=== PATIENT | male | born 1950 | race Caucasian/White ===

== ENCOUNTER 2019-12-04 17:34 | Emergency (ER) | payer OTHER ==
--- OUTSIDE RECORDS SUMMARY | 2019-12-04 17:35 | XMS REPORT ---
:1950 Author Organization [facility] t Address [address] [place] [address] Dr. Kaplan [address] [place] [id number] Care Team Providers Name Role Phone Unavailable Unavailable Unavailable Problems This patient has no known problems. Allergies, Adverse Reactions, Alerts This patient has no known allergies or adverse reactions. Medications This patient has no known medications.
--- OUTSIDE RECORDS SUMMARY | 2019-12-04 17:36 | XMS REPORT | Summary of Care ---
:1950 Author Organization [facility] - Health Address [address] [place] [address] Care Team Providers Name Role Phone Amira Nael Camarena Primary Care Provider Reason for Visit Auth/Cert Status Reason Specialty Diagnoses / Procedures Referred By Migue lopezact Referred To Contact Surgery Diagnoses Dysphagia, unspecified R13.10 (ICD-10-CM) - Dysphagia, unspecified Adc Pre/Pa cu/Post Procedures [place] EGD TRANSORAL BIOPSY SINGLE/MULTIPLE ESOPHAGOGASTRODUODENOSCOPY [address]131 - [place] EGD TRANSORAL BIOPSY SINGLE/MULTIPLE [address] [place] [address] [place] [address] Phone: Fax: Encounter Details Date Type Department Care Team Description 09/21/2019 [facility] Migue [address] [facility] [address] [facility] [place] [address] [id number] [place] [phone] Allergies No Known Allergiesdocumented as of this encounter (statuses as of 09/21/2019) Medications Medication Sig Dispensed Refills Start Date End Date Status potassium citrate Take 1,080 mg 3 08/10/2015 Active (UROCIT-K) 10 mEq (1,080 by mouth 2 mg) SR tablet (two) times daily. hydrochlorothiazide 0 10/11/2015 Active (ESIDRIX) 12.5 mg capsule pravastatin (PRAVACHOL) 10 Take 10 mg by 0 Active mg tablet mouth at bedtime. Omeprazole, Bulk, 100 % 0 Active Powd fexofenadine (RAJ Take 180 mg 0 Active ALLERGY) 180 mg tablet by mouth daily. MULTIVITAMINS WITH FLUORIDE Take 1 tablet 0 Active (MULTI YWLV-EUSN-PLISEDMC by mouth ORAL) daily. VITAMIN E,DL-ALPHA 0 A ctive TOCOPHEROL, (VITAMIN E, BULK, MISC) ASCORBIC ACID/VITAMIN E Take by 0 Active (VITAMIN C & E COMBINATION mouth. ORAL) NAPROXEN SODIUM (ALEVE Take by 0 Active ORAL) mouth. diclofenac 75 mg EC tablet Take 1 tablet 60 tablet 1 8 Active by mouth 2 (two) times daily with meals. diclofenac 75 mg EC tablet Take 1 tablet 60 tablet 1 8 Active by mouth 2 (two) times daily with meals. diclofenac 75 mg EC tablet Take 1 tablet 90 tablet 0 8 Active by mouth 2 (two) times daily with meals. ascorbic acid, vitamin C, Take 500 mg 0 Active (VITAMIN C) 500 mg tablet by mouth daily. vitamin e 400 unit capsule Take 400 0 Active Units by mouth daily. omeprazole 40 mg capsule Take 40 mg by 0 Active mouth daily. documented as of this encounter (statuses as of 09/21/2019) Active Problems Problem Noted Date Left ankle pain 10/17/2015 documented as of this encounter (statuses as of 09/21/2019) Social History Tobacco Use Types Packs/Day Years Used Date Never Smoker Smokeless Tobacco: Never Used Alcohol Use Drinks/Week oz/Week Comments No 0 Standard drinks or equivalent 0.0 Sex Assigned at Date Recorded Not on file Job Start Date Occupation Industry Not on file Not on file Not on file Travel History Travel Start Travel End No recent travel history available. documented as of this encounter Last Filed Vital Signs Vital Sign Reading Time Taken Comments Blood Pressure 124/78 09/21/2019 9:03 AM BELT LACER Pulse 58 09/21/2019 9:02 AM BELT LACER Temperature 36.7 C (98.1 F) 09/21/2019 9:02 AM BELT LACER Respiratory Rate 18 09/21/2019 9:02 AM BELT LACER Oxygen Saturation 95% 09/21/2019 9:02 AM BELT LACER Inhaled Oxygen Concentration - - Weight 89.8 kg (198 lb) 09/19/2019 3:00 PM BELT LACER Height 180.3 cm (5' 11") 09/19/2019 3:00 PM BELT LACER Body Mass Index 27.62 09/19/2019 3:00 PM BELT LACER documented in this encounter Discharge Instructions InstructionsOsizugbo, Tammi C, RN - 09/21/2019EGD DISCHARGE INSTRUCTIONS 1. Do not eat or drink until the sensation in your throat returns. Test your ability to drink withwater before eating solids. Lozenges are helpful for throat tenderness. 2. DO NOT DRIVE or operate machinery for the rest of the day. 3. Mild abdominal discomfort may result from procedure, but this should disappear within several hours. Notify your physician/nurse if you have persistent pain for more than 6 hours. Tenderness or abdominal distention. 4. Belching or passing gas per rectum frequently occurs during the first few hours after the examination. Walking will often help relieve distention or gas pains. 5. Notify your physician/nurse if your heart rate becomes unusually rapid, if you experience shortness of breath, dizziness fever greater than 101.0F.; or vomiting blood or experience chest pains or have any concerns at all. 6. Tenderness may occur in vein where medication was given. Notify your physician /nurse should fever, swelling, redness of the arm/hand, or pain in the armpit occurs. 7. Many patients feel quite tired following this procedure. You should rest and recuperate for several hours. 8. Continue to take all medications as prescribed until your follow up appointment. 9. Ask nurse for assistance in ambulating. 10. If you cannot reach your physician for problems go to the nearest emergency room. documented in this encounter Plan of Treatment Name Type Priority Associated Diagnoses Order S chedule EKG-12 LEAD ROUTINE HEART STATION Routine ONCE fo r 1 Occurrences sta rting 09/21/2019 unti l 09/21/2019 SURGICAL PATHOLOGY LAB Routine ONCE for 1 EXAM Occurrences sta rting 09/21/2019 Health Maintenance Due Date Last Done Comments HEPATITIS C (HCV) SCREEN 1950 DTaP,Tdap,and Td Vaccines (1 - Tdap) 1963 COLONOSCOPY 2002 Zoster Recombinant Vaccine (SHINGRIX) (1 of 2) 2002 Medicare Wellness Visit 2017 PNEUMOCOCCAL VACCINES 65+ (1 of 2 - PCV13) 2017 INFLUENZA VACCINE (#1) 2019 documented as of this encounter Procedures Procedure Name Priority Date/Time Associated Diagnosis Comme nts EGD (ENDO) Routine 09/21/2019 8:18 AM BELT LACER EKG-12 LEAD Routine 09/21/2019 7:36 AM BELT LACER documented in this encounter Results Not on filedocumented in this encounter Visit Diagnoses Diagnosis Esophageal dysphagia - Primary Dysphagia, pharyngoesophageal phase documented in this encounter Administered Medications Medication Order MAR Action Action Date Dose Rate Site simethicone (GAS RELIEF Given 09/21/2019 8:35 AM BELT LACER 0.6 mL (SIMETHICONE)) 40 mg/0.6 mL drops PRN, Starting Thu09/21/19 at 0835, Until Discontinued, Routine, Intra-op water for irrigation irrigation solution Given 09/21/2019 8:35 AM BELT LACER 1,000 mL PRN, Starting Thu09/21/19 at 0835, Until Discontinued, Routine, Intra-op Medication Order MAR Action Action Date Dose Rate Site lactated ringers IV infusion New Bag 09/21/2019 7:31 AM BELT LACER 1,000 mL 20 mL/hr 1,000 mL at 20 mL/hr, 1,000 mL, IV Infusion, ONCE, 1 dose, Thu09/21/19 at 0730, Routine, DSU Pre-op documented in this encounter Insurance Payer Benefit Plan / Subscriber ID Effective Phone Address T ype Group Dates MEDICARE MEDICARE PART xxxxxxxxxxx 2017-Pres [phone] Medicare A & B ent [phone] [id number] [place] [address] COMMERCIAL COMMERCIAL [id number] 2017-Pres HMO /PPO/POS NON-CONTRACT NON-CONTRACT ent GENERIC GENERIC documented as of this encounter
--- OUTSIDE RECORDS SUMMARY | 2019-12-04 17:36 | XMS REPORT | Summary of Care ---
:1950 Author Organization [facility] - Health Address [address] [place] [address] Care Team Providers Name Role Phone Amira Nael Camarena Primary Care Provider Reason for Visit Auth/Cert Status Reason Specialty Diagnoses / Procedures Referred By Migue lopezact Referred To Contact Surgery Diagnoses Dysphagia, unspecified R13.10 (ICD-10-CM) - Dysphagia, unspecified Adc Pre/Pa cu/Post Procedures [place] EGD TRANSORAL BIOPSY SINGLE/MULTIPLE ESOPHAGOGASTRODUODENOSCOPY [address] - [place] EGD TRANSORAL BIOPSY SINGLE/MULTIPLE [address] [place], [place] [address] Phone: Fax: Encounter Details Date Type Department Care Team Description 09/21/2019 Anesthesia [facility] Marielle Bustillos CRNA [address] [place] [address] [id number] [facility] Essence Masterson CRNA [address] [place] [address] [phone] [place] [address] [place], [place] [phone] Allergies No Known Allergiesdocumented as of this encounter (statuses as of 09/23/2019) Medications Medication Sig Dispensed Refills Start Date [...] FLUORIDE Take 1 tablet 0 Active (MULTI [id number] by mouth ORAL) daily. VITAMIN E,DL-ALPHA 0 [...] as of this encounter (statuses as of 09/23/2019) Active Problems Problem Noted Date Left ankle pain 10/17/2015 documented as of this encounter (statuses as of 09/23/2019) Social History Tobacco Use Types Packs/Day Years [...] of this encounter Last Filed Vital Signs Not on filedocumented in this encounter Plan of Treatment Health Maintenance Due Date Last Done Comments HEPATITIS C (HCV) SCREEN 1950 DTaP,Tdap,and Td Vaccines (1 - Tdap) 1963 COLONOSCOPY 2002 Zoster Recombinant Vaccine (SHINGRIX) (1 of 2) 2002 Medicare Wellness Visit 2017 PNEUMOCOCCAL VACCINES 65+ (1 of 2 - PCV13) 2017 INFLUENZA VACCINE (#1) 2019 documented as of this encounter Results Not on filedocumented in this encounter Administered Medications Medication Order MAR Action Action Date Dose Rate Site propofol IV infusion Given 09/21/2019 8:30 AM PRICING DIRECTOR 180 mg Intravenous, ONCE INTRA PROCEDURE, Starting Thu09/21/19 at 0859, Until Thu09/23/19 at 0827, Routine, Intra-op documented in this encounter Insurance Payer Benefit Plan / Subscriber ID Effective Phone Address T ype Group Dates MEDICARE MEDICARE PART xxxxxxxxxxx 2017-Pres [phone] Medicare A & B ent [phone] [id number] [place] [phone] COMMERCIAL COMMERCIAL [id number] 2017-Pres HMO /PPO/POS NON-CONTRACT NON-CONTRACT ent GENERIC GENERIC documented as of this encounter
--- OUTSIDE RECORDS SUMMARY | 2019-12-04 17:36 | XMS REPORT | Summary of Care ---
:1950 Author Organization [facility] - Health Address [address] [place] [address] Care Team Providers Name Role Phone Amira Nael Camarena Primary Care Provider Reason for Visit Auth/Cert Status Reason Specialty Diagnoses / Procedures Referred By Migue lopezact Referred To Contact Surgery Diagnoses Dysphagia, unspecified R13.10 (ICD-10-CM) - Dysphagia, unspecified Adc Pre/Pa cu/Post Procedures [place] EGD TRANSORAL BIOPSY SINGLE/MULTIPLE ESOPHAGOGASTRODUODENOSCOPY [address]30 - [place] EGD TRANSORAL BIOPSY SINGLE/MULTIPLE [address] [place], [place] [address] Phone: Fax: Encounter Details Date Type Department Care Team Description 09/21/2019 Anesthesia [facility] Marielle Bustillos CRNA [address] [place] [id number] [facility] Essence Masterson CRNA [address] [place] [address] [phone] [place] [address] [place], [place] [phone] Allergies No Known Allergiesdocumented as of this [...] FLUORIDE Take 1 tablet 0 Active (MULTI JNBW-HQNA-QWXPRAKE by mouth ORAL) daily. VITAMIN E,DL-ALPHA 0 [...] propofol IV infusion Given 09/21/2019 8:30 AM BEHAVIORAL PEDIATRICIAN 180 mg Intravenous, ONCE INTRA PROCEDURE, Starting Thu09/21/19 at 0859, Until Thu09/23/19 at 0827, Routine, Intra-op documented in this encounter Insurance Payer Benefit Plan / Subscriber ID Effective Phone Address T ype Group Dates MEDICARE MEDICARE PART xxxxxxxxxxx 2017-Pres [phone] Medicare A & B ent [phone] [id number] [place] [id number] COMMERCIAL COMMERCIAL [id number] 2017-Pres HMO /PPO/POS NON-CONTRACT NON-CONTRACT ent GENERIC GENERIC documented as of this encounter
--- NOTE | 2019-12-04 18:38 | RAD REPORT ---
EXAM DESCRIPTION: RAD - Shoulder Left 2 View - 12/04/2019 6:28 pm CLINICAL HISTORY: PAIN Fall, pain COMPARISON: No comparisons FINDINGS: No acute fracture or dislocation is seen.
--- NOTE | 2019-12-04 18:56 | RAD REPORT ---
EXAM DESCRIPTION: CT - Head Brain Wo Cont - 12/04/2019 6:49 pm CLINICAL HISTORY: TRAUMA Headache, drowsiness, head injury COMPARISON: No comparisons TECHNIQUE: All CT scans are performed using dose optimization technique as appropriate and may inclu de automated exposure control or mA/KV adjustment according to patient size. FINDINGS: No intracranial hemorrhage, hydrocephalus or extra-axial fluid collection.No areas of brai n edema or evidence of midline shift. The paranasal sinuses and mastoids are clear. The calvarium is intact. IMPRESSION: No acute intracranial abnormality.
--- NOTE | 2019-12-04 19:04 | EDPHYS ---
Physician Documentation [facility] Name: Humberto Brar Age: 69 yrs Sex: Male : 1950 Arrival Date: 12/04/2019 Time: 17:35 Bed 14 Private MD: Theresa Collier C ED Physician Carlton Magana HPI: 12/03 18:12 This 69 yrs old Male presents to ER via Ambulatory with complaints of kb Shoulder Pain, Passed Out Prior To Arrival. 18:13 The patient has experienced syncope, collapsed. Onset: The symptoms/episode kb began/occurred today. Duration: This was a single episode. Context: the episode(s) was witnessed, by a friend, occurred outdoors, occurred while the patient was standing, Just prior to the episode the patient experienced lightheadedness. Associated injury: Left upper extremity: anterior aspect of left shoulder, pain. Associated signs and symptoms: The patient has no apparent associated signs or symptoms. Current symptoms: Currently, the patient is not experiencing any symptoms, the patient feels back to baseline, no decreased level of consciousness, no confusion, no dysphasia, no headache, no paralysis, no visual changes. The patient has not experienced similar symptoms in the past. The patient has not recently seen a physician. Pt reports he gave blood at approx 1130, went home and ate a sandwich and some ice cream then went on a 2 hour bike ride. States he stopped to talk to a friend at the end of the ride and got lightheaded and passed out. Reports he got checked out by EMS and refused transport at the time. Went home and took a shower. States it was painful to raise his left shoulder in certain positions to wash his hair. Came in due to shoulder pain.. Historical: - Allergies: 17:49 No Known Allergies; ca1 - Home Meds: 17:49 Hydrochlorothiazide Oral [Active]; Omeprazole Oral [Active]; potassium citrate ca1 monohydrate (bulk) miscellaneous [Active]; pravastatin oral oral [Active]; - PMHx: 17:49 annuerysm; Hypertension; ca1 - PSHx: 17:49 kidney stone removal; Tonsillectomy; Adenoids; ca1 - Immunization history:: Adult Immunizations up to date, Pneumococcal vaccine is up to date, Flu vaccine is up to date. - Social history:: Smoking status: Patient denies any tobacco usage or history of. ROS: 18:12 Constitutional: Negative for fever, chills, and weight loss, Neck: Negative for injury, kb pain, and swelling, Cardiovascular: Negative for chest pain, palpitations, and edema, Respiratory: Negative for shortness of breath, cough, wheezing, and pleuritic chest pain, Abdomen/GI: Negative for abdominal pain, nausea, vomiting, diarrhea, and constipation, Back: Negative for injury and pain, Skin: Negative for injury, rash, and discoloration. 18:12 MS/extremity: Positive for pain, of the anterior aspect of left shoulder. 18:12 Neuro: Positive for syncope. Exam: 18:11 Constitutional: This is a well developed, well nourished patient who is awake, alert, kb and in no acute distress. Head/Face: Normocephalic, atraumatic. ENT: Nares patent. No nasal discharge, no septal abnormalities noted. Tympanic membranes are normal and external auditory canals are clear. Oropharynx with no redness, swelling, or masses, exudates, or evidence of obstruction, uvula midline. Mucous membranes moist. Neck: Trachea midline, no thyromegaly or masses palpated, and no cervical lymphadenopathy. Supple, full range of motion without nuchal rigidity, or vertebral point tenderness. No Meningismus. Chest/axilla: Normal chest wall appearance and motion. Nontender with no deformity. No lesions are appreciated. Cardiovascular: Regular rate and rhythm with a normal S1 and S2. No gallops, murmurs, or rubs. Normal PMI, no JVD. No pulse deficits. Respiratory: Lungs have equal breath sounds bilaterally, clear to auscultation and percussion. No rales, rhonchi or wheezes noted. No increased work of breathing, no retractions or nasal flaring. Abdomen/GI: Soft, non-tender, with normal bowel sounds. No distension or tympany. No guarding or rebound. No evidence of tenderness throughout. Skin: Warm, dry with normal turgor. Normal color with no rashes, no lesions, and no evidence of cellulitis. Neuro: Awake and alert, GCS 15, oriented to person, place, time, and situation. Cranial nerves II-XII grossly intact. Motor strength 5/5 in all extremities. Sensory grossly intact. Cerebellar exam normal. Normal gait. 18:11 Musculoskeletal/extremity: Extremities: grossly normal except: noted in the anterior aspect of left shoulder: pain, ROM: full active range of motion, limited active range of motion due to pain, in the anterior aspect of left shoulder, Circulation is intact in all extremities. Sensation intact. 18:46 ECG was reviewed by the Attending Physician. kb Vital Signs: 17:41 BP 117 / 70; Pulse 75; Resp 18 S; Temp 97.3(TE); Pulse Ox 96% on R/A; Weight 81.65 kg ca1 (R); Height 5 ft. 11 in. (180.34 cm); Pain 0/10; 19:02 BP 115 / 72 Supine; Pulse 62; lt1 19:02 BP 114 / 72 Sitting; Pulse 71; lt1 19:02 BP 115 / 70 Standing; Pulse 79; lt1 17:41 Body Mass Index 25.10 (81.65 kg, 180.34 cm) ca1 MDM: 17:49 Patient medically screened. kb 18:11 Data reviewed: vital signs, nurses notes. Data interpreted: Pulse oximetry: on room air kb is 96 %. Interpretation: normal. 19:03 Counseling: I had a detailed discussion with the patient and/or guardian regarding: the kb historical points, exam findings, and any diagnostic results supporting the discharge/admit diagnosis, radiology results, the need for outpatient follow up, a family practitioner, to return to the emergency department if symptoms worsen or persist or if there are any questions or concerns that arise at home. 05 17:59 Order name: Shoulder Left (2 View) XRAY; Complete Time: 18:43 kb 12/03 17:59 Order name: CT Head Brain wo Cont; Complete Time: 19:03 kb 12/03 17:50 Order name: Orthostatics; Complete Time: 19:04 kb 12/03 17:59 Order name: EKG; Complete Time: 17:59 kb 12/03 17:59 Order name: EKG - Nurse/Tech; Complete Time: 18:47 kb EC:46 Rate is 67 beats/min. Rhythm is regular. QRS [place] is Normal. ME interval is normal at kb 160 msec. QRS interval is normal at 88 msec. QT interval is normal at 406 msec. Administered Medications: No medications were administered Disposition: 12/04 07:21 Co-signature as Attending Physician, Carlton Magana MD. rn Disposition: 12/04/19 19:04 Discharged to Home. Impression: Syncope and collapse, Pain in left shoulder. - Condition is Stable. - Discharge Instructions: Shoulder Pain, [id number], Syncope, [id number]. - Prescriptions for Cyclobenzaprine 10 mg Oral Tablet - take 1 tablet by ORAL route every 8 hours As needed; 21 tablet. - Medication Reconciliation Form, Thank You Letter, Antibiotic Education, Prescription Opioid Use form. - Follow up: Emergency Department; When: As needed; Reason: Worsening of condition. Follow up: Private Physician; When: 2 - 3 days; Reason: Recheck today's complaints, Continuance of care, Re-evaluation by your physician. Signatures: Dispatcher [employer] EDOlga Kaur, CHYRON OPERATOR-C CHYRON OPERATOR-Carlton Lennon MD MD rn Luz Nieto, RN RN rb1 Acob, Dorothy RN RN ca1 Corrections: (The following items were deleted from the chart) 12/03 19:15 19:04 12/04/2019 19:04 Discharged to Home. Impression: Syncope and collapse; Pain in rb1 left shoulder. Condition is Stable. Forms are Medication Reconciliation Form, Thank You Letter, Antibiotic Education, Prescription Opioid Use. Follow up: Emergency Department; When: As needed; Reason: Worsening of condition. Follow up: Private Physician; When: 2 - 3 days; Reason: Recheck today's complaints, Continuance of care, Re-evaluation by your physician. kb
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
[2019-12-04 19:44] VITALS: TEMP 97.3; O2SAT 96
[2019-12-04 19:45] VITALS: BP 115/70
--- NOTE | 2019-12-05 10:51 | EKG ---
Test Date: 2019-12-04 Test Time: 18:44:44 Labor Standards Director: CLAUDINET MEASUREMENT RESULTS: Intervals: Rate: 67 OH: 160 QRSD: 88 QT: 406 QTc: 429 Holcomb: P: 19 OH: 160 QRS: -19 T: 17 INTERPRETIVE STATEMENTS: Normal sinus rhythm Minimal voltage criteria for LVH, may be normal variant Borderline ECG No previous ECG available for comparison Electronically Signed On 12-05-19 10:49:08 CDT by Jakub Tristan
== END 2019-12-04 19:15 | disposition home or self-care (01) ==
LOC: ER 17:34
DX: M25.512 Pain in left shoulder (principal); I10 Essential (primary) hypertension
CPT/HCPCS: 70450; 93005; 99284

== ENCOUNTER 2023-02-07 13:44 | Emergency (ER) | payer OTHER ==
--- OUTSIDE RECORDS SUMMARY | 2023-02-07 13:53 | XMS REPORT | Continuity of Care Document ---
:1950 Author Organization [facility] t Address [address] [place] [address] [place] [id number] Care Team Providers Name Role Phone Nael Collier Migue Primary Care Physician JUNAID MAST Attending Clinician Unavailable HERRERA HAYDEN Attending Clinician Unavailable PAYTON MALONEY Attending Clinician Unavailable Ben Moreno MD Attending Clinician Radha Menjivar Attending Clinician Юлия Baeza MA Attending Clinician Unavailable JUNAID MAST Attending Clinician Unavailable William FERNANDEZ, Provider Not In Attending Clinician Unavailable Shonna Poe RN Attending Clinician Unavailable Tammi Johnson MA Attending Clinician Unavailable Birdie Barrientos MD, [facility] Attending Clinician Unavailable OBEY DODD Attending Clinician Unavailable Eldon Larsen MD Attending Clinician Essence Masterson CRNA Attending Clinician [phone] O Attending Clinician RafaelMarielle estrella CRNA, MD, Eldon Camarena Admitting Clinician Payers Payer Name Policy Type Policy Effective Date Expiration Date Sour ce Number MEDICARE PART A [id number] 2017 AND B 00:00:00 COVID VACCINE [id number] 2020-08-29 TOMMIE Mora ADMIN / 00:00:00 [facility] VACCINE ADMIN / [id number] 01/2021-Present MEDICARE PART A [id number] 2017-03-03 \T\ B 00:00:00 COMMERCIAL [id number] 2017-03-03 NON-CONTRACT 00:00:00 GENERIC Problems Condition Condition Condition Status Onset Resolution Last Treating Co mments Source Name Details Category Date Date Treatment Clinician Date Acquired Acquired Disease Active [facility] valgus valgus 11-28 Health deformity deformity 00:00: knee, left knee, left 00 Effusion Effusion Disease Active UT of knee of knee 11-27 Health joint joint 00:00: right right 00 Acquired Acquired Disease Active UT valgus valgus 08-28 Health deformity deformity 00:00: knee, knee, 00 right right 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 of -17 Health knee, left knee, left 00:00: 00 Left Left Disease Active UT anterior anterior 08-19 Health cruciate cruciate 00:00: ligament ligament 00 tear tear Sprain of Sprain of Disease Active UT medial medial 17 Health collateral collateral 00:00: ligament ligament 00 of left of left knee knee Acute Acute Disease Active UT lateral lateral 17 Health meniscus meniscus 00:00: tear of tear of 00 left knee left knee Effusion Effusion Disease Active UT of knee of knee 1-17 Health joint, joint, 00:00: left left 00 Internal Internal Disease Active Last UT derangemen derangemen 1-09 [facility] t of left t of left 00:00: t & Plan: knee knee 00 Formattin g of this note might be different from the original. Concern for acute meniscus tear despite the fact that he does have knee osteoarth ritis. He has difficult y with flexion extension , recommend using a cane, may continue taking antithyro id medicatio n such as ibuprofen , naproxen. He also has an old prescript ion of tramadol and hydrocodo ne that he may use as need be. Recommend rest, ice, compressi on, elevation (RICE) follow-up after MRI of the left knee. Left knee Left knee Disease Active UT pain pain - Health 00:00: 00 Arthritis Arthritis Disease Active Last UT of left of left 08-11 [facility] knee knee 00:00: t & Plan: 00 Formattin g of this note might be different from the original. Reviewed MRI of the left knee with patient today copy of the MRI prescribe d today. I recommend ed trial of physical therapy for prerehabi litation ACL, partial nonweight bearing. May use a cane in the right hand. And referral to Dr Ben Moreno, Total Joint surgeon, [place] [facility] for surgical consultat ion for possible total knee arthropla sty. Richie Baxter MD, Family Medicine PGY 3 resident accompani ed me with the consultat ion of this patient visit. Miky Bingham, MS1 [facility] student accompani ed me with the consultat ion of this patient visit. Primary Primary Disease Active Last UT osteoarthr osteoarthr 08-11 Assessmen Health itis of itis of 00:00: t & Plan: left knee left knee 00 Formattin g of this note might be different from the original. Reviewed MRI of the left knee with patient today copy of the MRI prescribe d today. I recommend ed trial of physical therapy for prerehabi litation ACL, partial nonweight bearing. May use a cane in the right hand. And referral to Dr Ben Moreno, Total Joint surgeon, [place] [facility] for surgical consultat ion for possible total knee arthropla sty. Richie Baxter MD, Family Medicine PGY 3 resident accompani ed me with the consultat ion of this patient visit. Miky Bingham, MS1 [facility] student accompani ed me with the consultat ion of this patient visit. Arthritis Arthritis Disease Active 2021-08 UT of ankle of ankle 0-23 Health or foot, or foot, 00:00: degenerati degenerati 00 ve, right ve, right Arthritis Arthritis Disease Active Last UT of right of right 8-15 Assessmen Hea [facility] elbow elbow 00:00: t & Plan: 00 Formattin g of this note might be different from the original. Reassured today, improved overall. Follow-up as needed. Reviewed x-rays today. May continue using right elbow sleeve. Right Right Disease Active UT elbow pain elbow pain 8-15 He alth 00:00: 00 Traumatic Traumatic Disease Active Last UT complete complete 6-15 Assessmen [facility] tear of tear of 00:00: t & Plan: right right 00 Formattin rotator rotator g of this cuff cuff note might be different from the original. Patient will be referred to Dr. Mast for rotator cuff surgery of the right shoulder. Otherwise he has filled the PT, CSI injection . He has tried doing at [employer] he has some mild intermitt ent pain he would like to try and get this repaired before he gets any worse. Otherwise stable. She has been continue to play golf. Biceps Biceps Disease Active UT tendonitis tendonitis 6-15 He alth on right on right 00:00: 00 Nontraumat Nontraumat Disease Active Last U T ic tear of ic tear of 6-15 Assessmen Health right right 00:00: t & Plan: supraspina supraspina 00 Formattin tus tendon tus tendon g of this note might be different from the original. Patient will be referred to Dr. Mast for rotator cuff surgery of the right shoulder. Otherwise he has filled the PT, CSI injection . He has tried doing at [employer] he has some mild intermitt ent pain he would like to try and get this repaired before he gets any worse. Otherwise stable. She has been continue to play golf. Arthritis Arthritis Disease Active Last UT of right of right 5-26 Assessmen Rekha [facility] shoulder shoulder 00:00: t & Plan: region region 00 Formattin g of this note might be different from the original. MRI of the right shoulder ordered pending results consider a corticost eroid injection of the right shoulder. Arthritis Arthritis Disease Active UT of right of right 1-27 Health acromiocla acromiocla 00:00: vicular vicular 00 joint joint Arthritis Arthritis Disease Active UT of left of left 9-21 Health acromiocla acromiocla 00:00: vicular vicular 00 joint joint Pain of Pain of Disease Active UT left left 9 Health shoulder shoulder 00:00: region region 00 Subacromia Subacromia Disease Active Last U T l bursitis l bursitis 04-23 Assessmen Health of left of left 00:00: t & Plan: shoulder shoulder 00 Formattin joint joint g of this note might be different from the original. Administe red left shoulder ultrasoun d-guided corticost eroid injection without any complicat ion and to follow-up in 3 months as needed for possible repeat if need be. Subacromia Subacromia Disease Active U T l bursitis l bursitis 04-23 He alth of right of right 00:00: shoulder shoulder 00 joint joint Left ankle Left ankle Disease Active U nivers pain pain 3-16 ity of 00:00: [address] [place] Allergies, Adverse Reactions, Alerts Allergy Allergy Status Severity Reaction(s) Onset Inactive Treating Comm ents Source Name Type Date Date Clinician No Known DA Active [facility] Allergie 27 Clear s 00:00: [address] NO KNOWN Drug Active Univers ALLERGIE Class ity of S [facility] Social History Social Habit Start Date Stop Date Quantity Comments Source History [facility] Health Alcohol Std Drinks History [facility] Alcohol Binge History [facility] Health Alcohol Comment Exposure to 2022-11-17 2022-11-27 Not sure [place] [facility] SARS-CoV-2 (event) 00:00:00 13:44:00 Tobacco use and 2022-08-28 2022-08-28 Smokeless tobacco [facility] exposure 00:00:00 00:00:00 non-user Alcohol intake 2021-05-21 2021-05-21 Lifetime [facility] 00:00:00 00:00:00 non-drinker (finding) History SDND 2020-12-25 2020-12-25 1 [facility] Alcohol Frequency 00:00:00 00:00:00 Sex [birth year] At [birth year] TOMMIE [facility] Sm[facility] Status Start Date Stop Date Source Never smoked tobacco [place] [facility] Medications Ordered Filled Start Stop Current Ordering Indication Dosage Frequency Signature Comments Components Source Medication Medication Date Date Medication? Clinician (SIG) Name Name omeprazole No [id number] 20mg QD Take 1 UT OTC 08-28 [id number] tablet (20 Health (PriLOSEC 00:00: 05:59 mg total) OTC) 20 MG 00 :00 by mouth 1 EC tablet (one) time each day. Do not crush, chew, or split. Take w/ NSAID Diclofenac 2022- No [id number] Q.[id number] Apply UT Sodium 08-28 99937 [id number] topically Health (Voltaren) 00:00: 05:59 3D 3 (three) 1 % 00 :00 times a external day if gel needed (pain). APPLY 4 GRAMS TO AFFECTED AREA DO NOT EXCEED 16 GRAMS QD meloxicam 2022- No [id number] 7.5mg Take 1 UT (Mobic) 7.5 08-28 95355 tablet Heal th MG tablet 00:00: 05:59 (7.5 mg 00 :00 total) by mouth 1 (one) time each day if needed (pain). omeprazole 2022- No [id number] 20mg QD Take 1 UT OTC 08-28 [id number] tablet (20 Health (PriLOSEC 00:00: 05:59 mg total) OTC) 20 MG 00 :00 by mouth 1 EC tablet (one) time each day. Do not crush, chew, or split. Take w/ NSAID Diclofenac 2022- No [id number] Q.[id number] Apply UT Sodium 08-28 05784 [id number] topically Health (Voltaren) 00:00: 05:59 3D 3 (three) 1 % 00 :00 times a external day if gel needed (pain). APPLY 4 GRAMS TO AFFECTED AREA DO NOT EXCEED 16 GRAMS QD meloxicam 2022- No [id number] 7.5mg Take 1 UT (Mobic) 7.5 08-28 45998 tablet Heal th MG tablet 00:00: 05:59 (7.5 mg 00 :00 total) by mouth 1 (one) time each day if needed (pain). omeprazole 2022- No [id number] 20mg QD Take 1 UT OTC 08-28 tablet (20 Health (PriLOSEC 00:00: 05:59 mg total) OTC) 20 MG 00 :00 by mouth 1 EC tablet (one) time each day. Do not crush, chew, or split. Take w/ NSAID Diclofenac 2022- No [id number] Q.[id number] Apply UT Sodium 08-28 60412 [id number] topically Health (Voltaren) 00:00: 05:59 3D 3 (three) 1 % 00 :00 times a external day if gel needed (pain). APPLY 4 GRAMS TO AFFECTED AREA DO NOT EXCEED 16 GRAMS QD meloxicam 2022- No [id number] 7.5mg Take 1 UT (Mobic) 7.5 08-28 tablet Heal th MG tablet 00:00: 05:59 (7.5 mg 00 :00 total) by mouth 1 (one) time each day if needed (pain). hydroCHLORO No 12.5mg 12.5 mg. UT thiazide 8-15 03-17 Health (HYDRODiuri 10:58: 00:00 l) 12.5 MG 05 :00 tablet hydroCHLORO 2021- No 12.5mg 12.5 mg. UT thiazide 8-15 03-17 Health (HYDRODiuri 10:58: 00:00 l) 12.5 MG 05 :00 tablet HYDROcodone 2020-08 Yes [id number] 1{tbl} Take 1 UT -acetaminop 0-29 tablet by [facility] hen ([place]) 00:00: mouth 7.5-325 MG 00 every 4 tablet (four) hours if needed for severe pain. HYDROcodone 2020-08 Yes [id number] 1{tbl} Take 1 UT -acetaminop 0-29 tablet by [facility] hen ([place]) 00:00: mouth 7.5-325 MG 00 every 4 tablet (four) hours if needed for severe pain. cyclobenzap 2020-08 Yes [id number] 10mg Q.[id number] Take 1 UT rine 0-29 [id number] tablet (10 Hea lth (Flexeril) 00:00: 3D mg total) 10 MG 00 by mouth 3 tablet (three) times a day if needed for muscle spasms for up to 10 days. HYDROcodone 2020-08 Yes [id number] 1{tbl} Take 1 UT -acetaminop 0-29 tablet by Hea lth hen ([place]) 00:00: mouth 7.5-325 MG 00 every 4 tablet (four) hours if needed for severe pain. cyclobenzap 2020-08 Yes [id number] 10mg Q.[id number] Take 1 UT rine 0-29 [id number] tablet (10 Hea lth (Flexeril) 00:00: 3D mg total) 10 MG 00 by mouth 3 tablet (three) times a day if needed for muscle spasms for up to 10 days. HYDROcodone 2020-08 Yes [id number] 1{tbl} Take 1 UT -acetaminop 0-29 tablet by Hea lth hen (Zinitix) 00:00: mouth 7.5-325 MG 00 every 4 tablet (four) hours if needed for severe pain. cyclobenzap 2020-08 Yes [id number] 10mg Q.[id number] Take 1 UT rine 0-29 [id number] tablet (10 Hea lth (Flexeril) 00:00: 3D mg total) 10 MG 00 by mouth 3 tablet (three) times a day if needed for muscle spasms for up to 10 days. HYDROcodone 2020-08 Yes [id number] 1{tbl} Take 1 UT -acetaminop 0-29 tablet by Hea lth hen ([place]) 00:00: mouth 7.5-325 MG 00 every 4 tablet (four) hours if needed for severe pain. cyclobenzap 2020-08 Yes [id number] 10mg Q.[id number] Take 1 UT rine 0-29 [id number] tablet (10 Hea lth (Flexeril) 00:00: 3D mg total) 10 MG 00 by mouth 3 tablet (three) times a day if needed for muscle spasms for up to 10 days. HYDROcodone 2020-08 Yes [id number] 1{tbl} Take 1 UT -acetaminop 0-29 tablet by Hea lth hen ([place]) 00:00: mouth 7.5-325 MG 00 every 4 tablet (four) hours if needed for severe pain. cyclobenzap 2020-08 Yes [id number] 10mg Q.[id number] Take 1 UT rine 0-29 [id number] tablet (10 Hea lth (Flexeril) 00:00: 3D mg total) 10 MG 00 by mouth 3 tablet (three) times a day if needed for muscle spasms for up to 10 days. HYDROcodone 2020-08 Yes [id number] 1{tbl} Take 1 UT -acetaminop 0-29 tablet by Hea lth hen ([place]) 00:00: mouth 7.5-325 MG 00 every 4 tablet (four) hours if needed for severe pain. cyclobenzap 2020-08 Yes [id number] 10mg Q.[id number] Take 1 UT rine 0-29 [id number] tablet (10 Hea lth (Flexeril) 00:00: 3D mg total) 10 MG 00 by mouth 3 tablet (three) times a day if needed for muscle spasms for up to 10 days. HYDROcodone 2020-08 Yes [id number] 1{tbl} Take 1 UT -acetaminop 0-29 tablet by Hea lth hen ([place]) 00:00: mouth 7.5-325 MG 00 every 4 tablet (four) hours if needed for severe pain. cyclobenzap 2020-08 Yes [id number] 10mg Q.[id number] Take 1 UT rine 0-29 [id number] tablet (10 Hea lth (Flexeril) 00:00: 3D mg total) 10 MG 00 by mouth 3 tablet (three) times a day if needed for muscle spasms for up to 10 days. HYDROcodone 2020-08 Yes [id number] 1{tbl} Take 1 UT -acetaminop 0-29 tablet by Hea lth hen ([place]) 00:00: mouth 7.5-325 MG 00 every 4 tablet (four) hours if needed for severe pain. HYDROcodone 2020-08 Yes [id number] 1{tbl} Take 1 UT -acetaminop 0-29 tablet by [facility]a lth hen ([place]) 00:00: mouth 7.5-325 MG 00 every 4 tablet (four) hours if needed for severe pain. cyclobenzap 2020-08 Yes [id number] 10mg Q.[id number] Take 1 UT rine 0-29 [id number] tablet (10 Hea lth (Flexeril) 00:00: 3D mg total) 10 MG 00 by mouth 3 tablet (three) times a day if needed for muscle spasms for up to 10 days. HYDROcodone 2020-08 Yes [id number] 1{tbl} Take 1 UT -acetaminop 0-29 tablet by Hea lth hen ([place]) 00:00: mouth 7.5-325 MG 00 every 4 tablet (four) hours if needed for severe pain. cyclobenzap 2020-08 Yes [id number] 10mg Q.[id number] Take 1 UT rine 0-29 [id number] tablet (10 Hea lth (Flexeril) 00:00: 3D mg total) 10 MG 00 by mouth 3 tablet (three) times a day if needed for muscle spasms for up to 10 days. HYDROcodone 2020-08 Yes [id number] 1{tbl} Take 1 UT -acetaminop 0-29 tablet by Hea lth hen ([place]) 00:00: mouth 7.5-325 MG 00 every 4 tablet (four) hours if needed for severe pain. cyclobenzap 2020-08 Yes [id number] 10mg Q.[id number] Take 1 UT rine 0-29 [id number] tablet (10 Hea lth (Flexeril) 00:00: 3D mg total) 10 MG 00 by mouth 3 tablet (three) times a day if needed for muscle spasms for up to 10 days. HYDROcodone 2020-08 Yes [id number] 1{tbl} Take 1 UT -acetaminop 0-29 tablet by Hea lth hen ([place]) 00:00: mouth 7.5-325 MG 00 every 4 tablet (four) hours if needed for severe pain. cyclobenzap 2020-08 Yes [id number] 10mg Q.[id number] Take 1 UT rine 0-29 [id number] tablet (10 Hea lth (Flexeril) 00:00: 3D mg total) 10 MG 00 by mouth 3 tablet (three) times a day if needed for muscle spasms for up to 10 days. HYDROcodone 2020-08 Yes [id number] 1{tbl} Take 1 UT -acetaminop 0-29 tablet by Hea lth hen ([place]) 00:00: mouth 7.5-325 MG 00 every 4 tablet (four) hours if needed for severe pain. cyclobenzap 2020-08 Yes [id number] 10mg Q.[id number] Take 1 UT rine 0-29 [id number] tablet (10 Hea lth (Flexeril) 00:00: 3D mg total) 10 MG 00 by mouth 3 tablet (three) times a day if needed for muscle spasms for up to 10 days. HYDROcodone 2020-08 Yes [id number] 1{tbl} Take 1 UT -acetaminop 0-29 tablet by Hea lth hen ([place]) 00:00: mouth 7.5-325 MG 00 every 4 tablet (four) hours if needed for severe pain. cyclobenzap 2020-08 Yes [id number] 10mg Q.[id number] Take 1 UT rine 0-29 [id number] tablet (10 Hea lth (Flexeril) 00:00: 3D mg total) 10 MG 00 by mouth 3 tablet (three) times a day if needed for muscle spasms for up to 10 days. cyclobenzap 2020-08- No [id number] 10mg Q.[id number] Take 1 UT rine 0-29 11-09 [id number] tablet (10 He alth (Flexeril) 00:00: 05:59 3D mg total) 10 MG 00 :00 by mouth 3 tablet (three) times a day if needed for muscle spasms for up to 10 days. promethazin 2020-08- No [id number] 12.5mg Q6H Take 1 UT e 0-29 11-07 tablet Health (Phenergan) 00:00: 04:59 (12.5 mg 12.5 MG 00 :00 total) by tablet mouth every 6 (six) hours if needed for nausea for up to 8 days. promethazin 2020-08- No [id number] 12.5mg Q6H Take 1 UT e 0-29 11-07 tablet Health (Phenergan) 00:00: 04:59 (12.5 mg 12.5 MG 00 :00 total) by tablet mouth every 6 (six) hours if needed for nausea for up to 8 days. traMADol 2020-08 No [id number] 50mg Q6H Take 1-2 UT (Ultram) 50 0-29 11-04 tablets Heal th MG tablet 00:00: 04:59 (50-100 mg 00 :00 total) by mouth every 6 (six) hours if needed for severe pain for up to 5 days. triamcinolo 2020- No [id number] 10mg UT ne 01-15 Health acetonide 14:51: 14:51 (Kenalog) 31 :00 10 MG/ML injection 10 mg lidocaine 2020- No [id number] 1mL UT (Xylocaine) 01-15 Health 1 % 14:51: 14:51 injection 1 31 :00 mL bupivacaine 2020- No [id number] 1mL UT (Marcaine) 01-15 Health 0.25 % 14:51: 14:51 injection 1 31 :00 mL bupivacaine 2020- No [id number] 1mL 1 mL, UT (Marcaine) 01-15 Injection, He alth 0.25 % 14:51: 14:51 Once PRN injection 1 31 :00 Procedure, mL Starting on Thu01/15/21 at 0951, For 1 dose lidocaine No [id number] 1mL 1 mL, U T (Xylocaine) 01-15 Injection, H ealth 1 % 14:51: 14:51 Once PRN injection 1 31 :00 Procedure, mL Starting on Thu01/15/21 at 0951, For 1 dose triamcinolo 2020- No [id number] 10mg 10 mg, UT ne 01-15 Intra-lashay Health acetonide 14:51: 14:51 cular, (Kenalog) 31 :00 Once PRN 10 MG/ML Procedure, injection Starting 10 mg on Thu01/15/21 at 0951, For 1 dose triamcinolo 2020- No [id number] 10mg UT ne 01-15 Health acetonide 14:51: 14:51 (Kenalog) 31 :00 10 MG/ML injection 10 mg lidocaine 2020- No [id number] 1mL UT (Xylocaine) 01-15 Health 1 % 14:51: 14:51 injection 1 31 :00 mL bupivacaine 2020- No [id number] 1mL UT (Marcaine) 01-15 Health 0.25 % 14:51: 14:51 injection 1 31 :00 mL bupivacaine 2020- No [id number] 1mL 1 mL, UT (Marcaine) 01-15 Injection, He alth 0.25 % 14:51: 14:51 Once PRN injection 1 31 :00 Procedure, mL Starting on 01/15/21 at 0951, For 1 dose lidocaine 2020- No [id number] 1mL 1 mL, U T (Xylocaine) 01-15 Injection, H ealth 1 % 14:51: 14:51 Once PRN injection 1 31 :00 Procedure, mL Starting on 01/15/21 at 0951, For 1 dose triamcinolo 2020- No [id number] 10mg 10 mg, UT ne 01-15 Intra-lashay Health acetonide 14:51: 14:51 cular, (Kenalog) 31 :00 Once PRN 10 MG/ML Procedure, injection Starting 10 mg on 01/15/21 at 0951, For 1 dose triamcinolo 2020- No [id number] 10mg UT ne 12-26 [id number] Health acetonide 19:51: 19:51 (Kenalog) 05 :00 10 MG/ML injection 10 mg lidocaine 2020- No [id number] 1mL UT (Xylocaine) 12-26 Health 1 % 19:51: 19:51 injection 1 05 :00 mL bupivacaine 2020- No [id number] 1mL UT (Marcaine) 12-26 31526 Health 0.25 % 19:51: 19:51 injection 1 05 :00 mL bupivacaine 2020- No [id number] 1mL 1 mL, UT (Marcaine) 12-26 [id number] Injection, H ealth 0.25 % 19:51: 19:51 Once PRN injection 1 05 :00 Procedure, mL Starting on Thu12/26/20 at 1451, For 1 dose lidocaine 2020- No [id number] 1mL 1 mL, UT (Xylocaine) 12-26 Injection, Health 1 % 19:51: 19:51 Once PRN injection 1 05 :00 Procedure, mL Starting on Thu12/26/20 at 1451, For 1 dose triamcinolo 2020- No [id number] 10mg 10 mg, UT ne 12-26 Intra-lashay Health acetonide 19:51: 19:51 cular, (Kenalog) 05 :00 Once PRN 10 MG/ML Procedure, injection Starting 10 mg on Thu12/26/20 at 1451, For 1 dose triamcinolo 2020- No [id number] 10mg UT ne 12-26 Health acetonide 19:51: 19:51 (Kenalog) 05 :00 10 MG/ML injection 10 mg lidocaine 2020- No [id number] 1mL UT (Xylocaine) 12-26 Health 1 % 19:51: 19:51 injection 1 05 :00 mL bupivacaine 2020- No [id number] 1mL UT (Marcaine) 12-26 Health 0.25 % 19:51: 19:51 injection 1 05 :00 mL bupivacaine 2020- No [id number] 1mL 1 mL, UT (Marcaine) 12-26 Injection, ealt 0.25 % 19:51: 19:51 Once PRN injection 1 05 :00 Procedure, mL Starting on Thu12/26/20 at 1451, For 1 dose lidocaine 2020- No [id number] 1mL 1 mL, UT (Xylocaine) 12-26 Injection, Health 1 % 19:51: 19:51 Once PRN injection 1 05 :00 Procedure, mL Starting on Thu12/26/20 at 1451, For 1 dose triamcinolo 2020- No [id number] 10mg 10 mg, UT ne 5-26 05-26 [id number] Intra-[facility] Health acetonide 19:51: 19:51 cular, (Kenalog) 05 :00 Once PRN 10 MG/ML Procedure, injection Starting 10 mg on Thu12/26/20 at 1451, For 1 dose omeprazole Yes 40mg 40 mg. UT (PriLOSEC) 12-[address] 19:11: capsule 11 fexofenadin Yes UT e (Mahsa 12-26 Health Allergy) 19:11: 180 MG 11 tablet hydroCHLORO Yes 12.5mg 12.5 mg. UT thiazide 12-26 Health (HYDRODiuri 19:11: l) 12.5 MG 11 tablet Naproxen Yes 220mg 220 mg. UT Sodium 12-26 Health (Aleve) 220 19:11: MG capsule 11 Multiple Yes UT Vitamin 12-26 Health (Multi 19:11: Vitamin 11 Daily) tablet Ascorbic Yes 500mg 500 mg. UT Acid 12-26 Health (Vitamin C) 19:11: 500 MG 11 capsule pravastatin Yes 20mg 20 mg. UT (Pravachol) 12-26 Health 20 MG 19:11: tablet 11 alpha Yes 400U 400 Units. UT tocopherol 12-26 Health (Vitamin E) 19:11: 400 units 11 capsule potassium Yes UT citrate CR 12-26 Health (Urocit-K-1 19:11: 0) 10 mEq 11 ER tablet Omeprazole Yes by Other UT powder 12-26 route. Health 19:11: 11 potassium Yes Take by [place] citrate-cit 12-26 mouth. Health ron acid 19:11: (Cytra-K-Cr 11 ystals) [id number] MG packet omeprazole Yes 40mg 40 mg. UT (PriLOSEC) 12-26 Health 40 MG 19:11: capsule 11 fexofenadin Yes UT e (Mahsa 12-26 Health Allergy) 19:11: 180 MG 11 tablet hydroCHLORO Yes 12.5mg 12.5 mg. UT thiazide 12-26 Health (HYDRODiuri 19:11: l) 12.5 MG 11 tablet Naproxen 2021-0 Yes 220mg 220 mg. UT Sodium 12-26 Health (Aleve) 220 19:11: MG capsule 11 Multiple 0 Yes UT Vitamin 12-26 Health (Multi 19:11: Vitamin 11 Daily) tablet Ascorbic 0 Yes 500mg 500 mg. UT Acid 12-26 Health (Vitamin C) 19:11: 500 MG 11 capsule pravastatin 0 Yes 20mg 20 mg. UT (Pravachol) 12-26 Health 20 MG 19:11: tablet 11 alpha Yes 400U 400 Units. UT tocopherol 12-26 Health (Vitamin E) 19:11: 400 units 11 capsule potassium Yes UT citrate CR 12-26 Health (Urocit-K-1 19:11: 0) 10 mEq 11 ER tablet Omeprazole Yes by Other UT powder 12-26 route. Health 19:11: 11 potassium Yes Take by UT citrate-cit 12-26 mouth. Health ron acid 19:11: (Cytra-K-Cr 11 ystals) [id number] MG packet omeprazole Yes 40mg 40 mg. UT (PriLOSEC) 12-26 Health 40 MG 19:11: capsule 11 fexofenadin Yes UT e (Mahsa 12-26 Health Allergy) 19:11: 180 MG 11 tablet hydroCHLORO Yes 12.5mg 12.5 mg. UT thiazide 12-26 Health (HYDRODiuri 19:11: l) 12.5 MG 11 tablet Naproxen Yes 220mg 220 mg. UT Sodium 12-26 Health (Aleve) 220 19:11: MG capsule 11 Multiple 0 Yes UT Vitamin 12-26 Health (Multi 19:11: Vitamin 11 Daily) tablet Ascorbic 0 Yes 500mg 500 mg. UT Acid 12-26 Health (Vitamin C) 19:11: 500 MG 11 capsule pravastatin 0 Yes 20mg 20 mg. [facility] (Pravachol) [facility] 20 MG 19:11: tablet 11 alpha 0 Yes 400U 400 Units. [facility] tocopherol 12-26 [facility] (Vitamin E) 19:11: 400 units 11 capsule potassium 0 Yes [facility] citrate CR 12-26 [facility] (Urocit-K-1 19:11: 0) 10 mEq 11 ER tablet Omeprazole Yes by Other [facility] powder 12-26 route. [facility] 19:11: 11 potassium Yes Take by [facility] citrate-cit 12-26 mouth. [facility] ron acid 19:11: (Cytra-K-Cr 11 ystals) [id number] MG packet omeprazole Yes 40mg 40 mg. [facility] (PriLOSEC) 12-[address] [facility] [address] 19:11: capsule 11 fexofenadin Yes [facility] e ([facility] Allergy) 19:11: 180 MG 11 tablet hydroCHLORO Yes 12.5mg 12.5 mg. [facility] thiazide 12-26 [facility] (HYDRODiuri 19:11: l) 12.5 MG 11 tablet Naproxen Yes 220mg 220 mg. [facility] Sodium 12-26 [facility] (Aleve) 220 19:11: MG capsule 11 Multiple Yes [facility] Vitamin 12-26 [facility] (Multi 19:11: Vitamin 11 Daily) tablet Ascorbic Yes 500mg 500 mg. [facility] Acid 12-26 [facility] (Vitamin C) 19:11: 500 MG 11 capsule pravastatin Yes 20mg 20 mg. [facility] (Pravachol) 12-26 [facility] 20 MG 19:11: tablet 11 alpha Yes 400U 400 Units. [facility] tocopherol 12-26 [facility] (Vitamin E) 19:11: 400 units 11 capsule potassium Yes [facility] citrate CR 12-26 [facility] (Urocit-K-1 19:11: 0) 10 mEq 11 ER tablet Omeprazole Yes by Other [facility] powder 12-26 route. [facility] 19:11: 11 potassium Yes Take by [facility] citrate-cit 12-26 mouth. [facility] ron acid 19:11: (Cytra-K-Cr 11 ystals) [id number] MG packet omeprazole Yes 40mg 40 mg. [facility] (PriLOSEC) 12-[address] [facility] [address] 19:11: capsule 11 fexofenadin Yes [facility] ([facility] Allergy) 19:11: 180 MG 11 tablet hydroCHLORO Yes 12.5mg 12.5 mg. [facility] thiazide 12-26 [facility] (HYDRODiuri 19:11: l) 12.5 MG 11 tablet Naproxen 0 Yes 220mg 220 mg. [facility] Sodium 12-26 [facility] (Aleve) 220 19:11: MG capsule 11 Multiple 0 Yes [facility] Vitamin - [facility] (Multi 19:11: Vitamin 11 Daily) tablet Ascorbic 2020-0 Yes 500mg 500 mg. [facility] Acid 12-26 [facility] (Vitamin C) 19:11: 500 MG 11 capsule pravastatin 0 Yes 20mg 20 mg. [facility] (Pravachol) 12-26 [facility] 20 MG 19:11: tablet 11 alpha 0 Yes 400U 400 Units. [facility] tocopherol 12-26 [facility] (Vitamin E) 19:11: 400 units 11 capsule potassium Yes [facility] citrate CR 12-26 [facility] (Urocit-K-1 19:11: 0) 10 mEq 11 ER tablet Omeprazole Yes by Other [facility] powder 12-26 route. [facility] 19:11: 11 potassium Yes Take by [facility] citrate-cit 12-26 mouth. [facility] ron acid 19:11: (Cytra-K-Cr 11 ystals) [id number] MG packet omeprazole Yes 40mg 40 mg. [facility] (PriLOSEC) 12-[address] [facility] [address] 19:11: capsule 11 fexofenadin Yes [facility] ([facility] Allergy) 19:11: 180 MG 11 tablet hydroCHLORO Yes 12.5mg 12.5 mg. [facility] thiazide 12-26 [facility] (HYDRODiuri 19:11: l) 12.5 MG 11 tablet Naproxen Yes 220mg 220 mg. [facility] Sodium 12-26 [facility] (Aleve) 220 19:11: MG capsule 11 Multiple Yes [facility] Vitamin 12-26 [facility] (Multi 19:11: Vitamin 11 Daily) tablet Ascorbic 0 Yes 500mg 500 mg. [facility] Acid 12-26 [facility] (Vitamin C) 19:11: 500 MG 11 capsule pravastatin 0 Yes 20mg 20 mg. [facility] (Pravachol) 12-26 [facility] 20 MG 19:11: tablet 11 alpha 0 Yes 400U 400 Units. [facility] tocopherol 12-26 [facility] (Vitamin E) 19:11: 400 units 11 capsule potassium 0 Yes [facility] citrate CR 12-26 [facility] (Urocit-K-1 19:11: 0) 10 mEq 11 ER tablet Omeprazole Yes by Other [facility] powder 12-26 route. [facility] 19:11: 11 potassium Yes Take by [facility] citrate-cit 12-26 mouth. [facility] ron acid 19:11: (Cytra-K-Cr 11 ystals) [id number] MG packet omeprazole Yes 40mg 40 mg. [facility] (PriLOSEC) 12-[address] [facility] [address] 19:11: capsule 11 fexofenadin Yes [facility] ([facility] All[facility]) 19:11: 180 MG 11 tablet hydroCHLORO Yes 12.5mg 12.5 mg. [facility] thiazide 12-26 [facility] (HYDRODiuri 19:11: l) 12.5 MG 11 tablet Naproxen Yes 220mg 220 mg. [facility] Sodium 12-26 [facility] (Aleve) 220 19:11: MG capsule 11 Multiple Yes [facility] Vitamin 12-26 [facility] (Multi 19:11: Vitamin 11 Daily) tablet Ascorbic Yes 500mg 500 mg. [facility] Acid 12-26 [facility] (Vitamin C) 19:11: 500 MG 11 capsule pravastatin Yes 20mg 20 mg. [facility] (Pravachol) 12-26 [facility] 20 MG 19:11: tablet 11 alpha Yes 400U 400 Units. [facility] tocopherol 12-26 [facility] (Vitamin E) 19:11: 400 units 11 capsule potassium Yes [facility] citrate CR 12-26 [facility] (Urocit-K-1 19:11: 0) 10 mEq 11 ER tablet Omeprazole Yes by Other [facility] powder 12-26 route. [facility] 19:11: 11 potassium Yes Take by [facility] citrate-cit 12-26 mouth. [facility] ron acid 19:11: (Cytra-K-Cr 11 ystals) [id number] MG packet omeprazole Yes 40mg 40 mg. [facility] (PriLOSEC) 12-[address] [facility] [address] 14:11: capsule 11 fexofenadin Yes [facility] ([facility] All[facility]) 14:11: 180 MG 11 tablet hydroCHLORO Yes 12.5mg 12.5 mg. [facility] thiazide 12-26 [facility] (HYDRODiuri 14:11: l) 12.5 MG 11 tablet Naproxen 0 Yes 220mg 220 mg. [facility] Sodium 5- [facility] (Aleve) 220 14:11: MG capsule 11 Multiple 2020-0 Yes [facility] Vitamin 5- [facility] (Multi 14:11: Vitamin 11 Daily) tablet Ascorbic 2020-0 Yes 500mg 500 mg. [facility] Acid 12-26 [facility] (Vitamin C) 14:11: 500 MG 11 capsule pravastatin 0 Yes 20mg 20 mg. [facility] (Pravachol) - [facility] 20 MG 14:11: tablet 11 alpha 0 Yes 400U 400 Units. [facility] tocopherol 12-26 [facility] (Vitamin E) 14:11: 400 units 11 capsule potassium Yes [facility] citrate CR 12-26 [facility] (Urocit-K-1 14:11: 0) 10 mEq 11 ER tablet Omeprazole Yes by Other [facility] powder 12-26 route. [facility] 14:11: 11 omeprazole 0 Yes 40mg 40 mg. [facility] (PriLOSEC) 12-[address] [facility] [address] 14:11: capsule 11 fexofenadin Yes [facility] ([facility] Allergy) 14:11: 180 MG 11 tablet hydroCHLORO 0 Yes 12.5mg 12.5 mg. [facility] thiazide 12-26 [facility] (OSIXiuri 14:11: l) 12.5 MG 11 tablet Naproxen 0 Yes 220mg 220 mg. [facility] Sodium 12-26 [facility] (Aleve) 220 14:11: MG capsule 11 Multiple 0 Yes [facility] Vitamin 5- [facility] (Multi 14:11: Vitamin 11 Daily) tablet Ascorbic 0 Yes 500mg 500 mg. [facility] Acid 12-26 [facility] (Vitamin C) 14:11: 500 MG 11 capsule pravastatin 0 Yes 20mg 20 mg. [facility] (Pravachol) 12-26 [facility] 20 MG 14:11: tablet 11 potassium 0 Yes Take by [facility] citrate-cit 12-26 mouth. [facility] ron acid 14:11: (Cytra-K-Cr 11 ystals) [id number] MG packet alpha 0 Yes 400U 400 Units. [facility] tocopherol 12-26 [facility] (Vitamin E) 14:11: 400 units 11 capsule potassium Yes [facility] citrate CR 12-26 [facility] (Urocit-K-1 14:11: 0) 10 mEq 11 ER tablet Omeprazole Yes by Other [facility] powder 12-26 route. [facility] 14:11: 11 potassium Yes Take by [facility] citrate-cit 12-26 mouth. [facility] ron acid 14:11: (Cytra-K-Cr 11 ystals) [id number] MG packet omeprazole Yes 40mg 40 mg. [facility] (PriLOSEC) 12-[address] [facility] [address] 14:11: capsule 11 fexofenadin Yes [facility] ([facility] Allergy) 14:11: 180 MG 11 tablet hydroCHLORO Yes 12.5mg 12.5 mg. [facility] thiazide 12-26 [facility] (HYDRODiuri 14:11: l) 12.5 MG 11 tablet Naproxen Yes 220mg 220 mg. [facility] Sodium 12-26 [facility] (Aleve) 220 14:11: MG capsule 11 Multiple Yes [facility] Vitamin 12-26 [facility] (Multi 14:11: Vitamin 11 Daily) tablet Ascorbic Yes 500mg 500 mg. [facility] Acid 12-26 [facility] (Vitamin C) 14:11: 500 MG 11 capsule omeprazole Yes 40mg 40 mg. [facility] (PriLOSEC) 12-[address] [facility] [address] 14:11: capsule 11 pravastatin Yes 20mg 20 mg. [facility] (Pravachol) 12-26 [facility] 20 MG 14:11: tablet 11 alpha Yes 400U 400 Units. [facility] tocopherol 12-26 [facility] (Vitamin E) 14:11: 400 units 11 capsule potassium Yes [facility] citrate CR 12-26 [facility] (Urocit-K-1 14:11: 0) 10 mEq 11 ER tablet Omeprazole Yes by Other [facility] powder 12-26 route. [facility] 14:11: 11 potassium Yes Take by [facility] citrate-cit 12-26 mouth. [facility] ron acid 14:11: (Cytra-K-Cr 11 ystals) [id number] MG packet omeprazole 0 Yes 40mg 40 mg. [facility] (PriLOSEC) 12-[address] [facility] [address] 14:11: capsule 11 fexofenadin Yes [facility] ([facility] Allergy) 14:11: 180 MG 11 tablet hydroCHLORO Yes 12.5mg 12.5 mg. [facility] thiazide 12-26 [facility] (HYDRODiuri 14:11: l) 12.5 MG 11 tablet Naproxen Yes 220mg 220 mg. [facility] Sodium 12-26 [facility] (Aleve) 220 14:11: MG capsule 11 Multiple Yes [facility] Vitamin 12-26 [facility] (Multi 14:11: Vitamin 11 Daily) tablet fexofenadin Yes [facility] ([facility] 12[facility] Allergy) 14:11: 180 MG 11 tablet Ascorbic Yes 500mg 500 mg. [facility] Acid 12-26 [facility] (Vitamin C) 14:11: 500 MG 11 capsule pravastatin Yes 20mg 20 mg. [facility] (Pravachol) 12-26 [facility] 20 MG 14:11: tablet 11 alpha Yes 400U 400 Units. [facility] tocopherol 12-26 [facility] (Vitamin E) 14:11: 400 units 11 capsule potassium Yes [facility] citrate CR 12-26 [facility] (Urocit-K-1 14:11: 0) 10 mEq 11 ER tablet Omeprazole Yes by Other [facility] powder 12-26 route. [facility] 14:11: 11 potassium Yes Take by [facility] citrate-cit 12-26 mouth. [facility] ron acid 14:11: (Cytra-K-Cr 11 ystals) [id number] MG packet omeprazole Yes 40mg 40 mg. [facility] (PriLOSEC) 12-[address] [facility] [address] 14:11: capsule 11 fexofenadin Yes [facility] ([facility] 12[facility] Allergy) 14:11: 180 MG 11 tablet hydroCHLORO Yes 12.5mg 12.5 mg. [facility] thiazide 12-26 [facility] (HYDRODiuri 14:11: l) 12.5 MG 11 tablet Naproxen Yes 220mg 220 mg. [facility] Sodium 12-26 [facility] (Aleve) 220 14:11: MG capsule 11 hydroCHLORO Yes 12.5mg 12.5 mg. [facility] thiazide 12-26 [facility] (HYDRODiuri 14:11: l) 12.5 MG 11 tablet Multiple 0 Yes [facility] Vitamin 12-26 [facility] (Multi 14:11: Vitamin 11 Daily) tablet Ascorbic 0 Yes 500mg 500 mg. [facility] Acid 12-26 [facility] (Vitamin C) 14:11: 500 MG 11 capsule pravastatin 0 Yes 20mg 20 mg. [facility] (Pravachol) 12-26 [facility] 20 MG 14:11: tablet 11 alpha 0 Yes 400U 400 Units. [facility] tocopherol 12-26 [facility] (Vitamin E) 14:11: 400 units 11 capsule potassium Yes [facility] citrate CR 12-26 [facility] (Urocit-K-1 14:11: 0) 10 mEq 11 ER tablet Omeprazole Yes by Other [facility] powder 12-26 route. [facility] 14:11: 11 potassium Yes Take by [facility] citrate-cit 12-26 mouth. [facility] ron acid 14:11: (Cytra-K-Cr 11 ystals) [id number] MG packet omeprazole Yes 40mg 40 mg. [facility] (PriLOSEC) 12-[address] [facility] [address] 14:11: capsule 11 fexofenadin Yes [facility] ([facility] 12[facility] Allergy) 14:11: 180 MG 11 tablet hydroCHLORO Yes 12.5mg 12.5 mg. [facility] thiazide 12-26 [facility] (HYDRODiuri 14:11: l) 12.5 MG 11 tablet Naproxen Yes 220mg 220 mg. [facility] Sodium 12-26 [facility] (Aleve) 220 14:11: MG capsule 11 Naproxen 0 Yes 220mg 220 mg. [facility] Sodium 12-26 [facility] (Aleve) 220 14:11: MG capsule 11 Multiple 0 Yes [facility] Vitamin 12-26 [facility] (Multi 14:11: Vitamin 11 Daily) tablet Ascorbic 0 Yes 500mg 500 mg. [facility] Acid 12-26 [facility] (Vitamin C) 14:11: 500 MG 11 capsule pravastatin Yes 20mg 20 mg. [facility] (Pravachol) 12-26 [facility] 20 MG 14:11: tablet 11 alpha 0 Yes 400U 400 Units. [facility] tocopherol 12-26 [facility] (Vitamin E) 14:11: 400 units 11 capsule potassium Yes [facility] citrate CR 12-26 [facility] (Urocit-K-1 14:11: 0) 10 mEq 11 ER tablet Omeprazole Yes by Other [facility] powder 12-26 route. [facility] 14:11: 11 potassium Yes Take by [facility] citrate-cit 12-26 mouth. [facility] ron acid 14:11: (Cytra-K-Cr 11 ystals) [id number] MG packet omeprazole Yes 40mg 40 mg. [facility] (PriLOSEC) 12-[address] [facility] [address] 14:11: capsule 11 fexofenadin Yes [facility] ([facility] 12[facility] All[facility]) 14:11: 180 MG 11 tablet Multiple Yes [facility] Vitamin 12-26 [facility] (Multi 14:11: Vitamin 11 Daily) tablet hydroCHLORO Yes 12.5mg 12.5 mg. [facility] thiazide 12-26 [facility] (HYDRODiuri 14:11: l) 12.5 MG 11 tablet Naproxen Yes 220mg 220 mg. [facility] Sodium 12-26 [facility] (Aleve) 220 14:11: MG capsule 11 Multiple Yes [facility] Vitamin 12-26 [facility] (Multi 14:11: Vitamin 11 Daily) tablet Ascorbic Yes 500mg 500 mg. [facility] Acid 12-26 [facility] (Vitamin C) 14:11: 500 MG 11 capsule pravastatin Yes 20mg 20 mg. [facility] (Pravachol) 12-26 [facility] 20 MG 14:11: tablet 11 alpha Yes 400U 400 Units. [facility] tocopherol 12-26 [facility] (Vitamin E) 14:11: 400 units 11 capsule potassium Yes [facility] citrate CR 12-26 [facility] (Urocit-K-1 14:11: 0) 10 mEq 11 ER tablet Omeprazole Yes by Other [facility] powder 12-26 route. [facility] 14:11: 11 potassium Yes Take by [facility] citrate-cit 12-26 mouth. [facility] ron acid 14:11: (Cytra-K-Cr 11 ystals) [id number] MG packet omeprazole Yes 40mg 40 mg. [facility] (PriLOSEC) 12-[address] [facility] [address] 14:11: capsule 11 Ascorbic 0 Yes 500mg 500 mg. [facility] Acid 12-26 [facility] (Vitamin C) 14:11: 500 MG 11 capsule fexofenadin Yes [facility] ([facility] 12[facility] Allergy) 14:11: 180 MG 11 tablet hydroCHLORO Yes 12.5mg 12.5 mg. [facility] thiazide 12-26 [facility] (HYDRODiuri 14:11: l) 12.5 MG 11 tablet Naproxen Yes 220mg 220 mg. [facility] Sodium 12-26 [facility] (Aleve) 220 14:11: MG capsule 11 Multiple Yes [facility] Vitamin - [facility] (Multi 14:11: Vitamin 11 Daily) tablet Ascorbic 0 Yes 500mg 500 mg. [facility] Acid 12-26 [facility] (Vitamin C) 14:11: 500 MG 11 capsule pravastatin Yes 20mg 20 mg. [facility] (Pravachol) 12-26 [facility] 20 MG 14:11: tablet 11 alpha Yes 400U 400 Units. [facility] tocopherol 12-26 [facility] (Vitamin E) 14:11: 400 units 11 capsule potassium Yes [facility] citrate CR 12-26 [facility] (Urocit-K-1 14:11: 0) 10 mEq 11 ER tablet Omeprazole Yes by Other [facility] powder 12-26 route. [facility] 14:11: 11 potassium Yes Take by [facility] citrate-cit 12-26 mouth. [facility] ron acid 14:11: (Cytra-K-Cr 11 ystals) [id number] MG packet pravastatin Yes 20mg 20 mg. [facility] (Pravachol) 12-26 [facility] 20 MG 14:11: tablet 11 omeprazole Yes 40mg 40 mg. [facility] (PriLOSEC) 12-[address] [facility] [address] 14:11: capsule 11 fexofenadin Yes [facility] ([facility] 12[facility] All[facility]) 14:11: 180 MG 11 tablet hydroCHLORO Yes 12.5mg 12.5 mg. [facility] thiazide 12-26 [facility] (HYDRODiuri 14:11: l) 12.5 MG 11 tablet Naproxen Yes 220mg 220 mg. [facility] Sodium 12-26 [facility] (Aleve) 220 14:11: MG capsule 11 Multiple Yes [facility] Vitamin 12-26 [facility] (Multi 14:11: Vitamin 11 Daily) tablet Ascorbic 0 Yes 500mg 500 mg. [facility] Acid 12-26 [facility] (Vitamin C) 14:11: 500 MG 11 capsule pravastatin Yes 20mg 20 mg. [facility] (Pravachol) 12-26 [facility] 20 MG 14:11: tablet 11 alpha Yes 400U 400 Units. [facility] tocopherol 12-26 [facility] (Vitamin E) 14:11: 400 units 11 capsule potassium Yes [facility] citrate CR 12-26 [facility] (Urocit-K-1 14:11: 0) 10 mEq 11 ER tablet Omeprazole Yes by Other [facility] powder 12-26 route. [facility] 14:11: 11 alpha Yes 400U 400 Units. [facility] tocopherol 12-26 [facility] (Vitamin E) 14:11: 400 units 11 capsule potassium Yes Take by [facility] citrate-cit 12-26 mouth. Health ron acid 14:11: (Cytra-K-Cr 11 ystals) [id number] MG packet omeprazole Yes 40mg 40 mg. [facility] (PriLOSEC) 12-[address] [facility] [address] 14:11: capsule 11 fexofenadin Yes [facility] ([facility] 12[facility] All[facility]) 14:11: 180 MG 11 tablet hydroCHLORO Yes 12.5mg 12.5 mg. [facility] thiazide 12-26 [facility] (HYDRODiuri 14:11: l) 12.5 MG 11 tablet Naproxen Yes 220mg 220 mg. [facility] Sodium 12-26 [facility] (Aleve) 220 14:11: MG capsule 11 Multiple Yes [facility] Vitamin 12-26 [facility] (Multi 14:11: Vitamin 11 Daily) tablet Ascorbic Yes 500mg 500 mg. [facility] Acid 12-26 [facility] (Vitamin C) 14:11: 500 MG 11 capsule pravastatin Yes 20mg 20 mg. [facility] (Pravachol) 12-26 [facility] 20 MG 14:11: tablet 11 alpha Yes 400U 400 Units. [facility] tocopherol 12-26 [facility] (Vitamin E) 14:11: 400 units 11 capsule potassium Yes [facility] citrate CR 12-26 [facility] (Urocit-K-1 14:11: 0) 10 mEq 11 ER tablet potassium Yes [facility] citrate CR 12-26 [facility] (Urocit-K-1 14:11: 0) 10 mEq 11 ER tablet Omeprazole Yes by Other [facility] powder 12-26 route. [facility] 14:11: 11 potassium Yes Take by [facility] citrate-cit 12-26 mouth. Health ron acid 14:11: (Cytra-K-Cr 11 ystals) [id number] MG packet omeprazole Yes 40mg 40 mg. [facility] (PriLOSEC) 12-[address] [facility] [address] 14:11: capsule 11 fexofenadin Yes [facility] ([facility] 12[facility] All[facility]) 14:11: 180 MG 11 tablet hydroCHLORO Yes 12.5mg 12.5 mg. [facility] thiazide 12-26 [facility] (HYDRODiuri 14:11: l) 12.5 MG 11 tablet Naproxen Yes 220mg 220 mg. [facility] Sodium 12-26 [facility] (Aleve) 220 14:11: MG capsule 11 Multiple Yes [facility] Vitamin 12-26 [facility] (Multi 14:11: Vitamin 11 Daily) tablet Ascorbic Yes 500mg 500 mg. [facility] Acid 12-26 [facility] (Vitamin C) 14:11: 500 MG 11 capsule pravastatin Yes 20mg 20 mg. [facility] (Pravachol) 12-26 [facility] 20 MG 14:11: tablet 11 alpha Yes 400U 400 Units. [facility] tocopherol 12-26 [facility] (Vitamin E) 14:11: 400 units 11 capsule Omeprazole Yes by Other [facility] powder 12-26 route. [facility] 14:11: 11 potassium Yes [facility] citrate CR 12-26 [facility] (Urocit-K-1 14:11: 0) 10 mEq 11 ER tablet Omeprazole Yes by Other [facility] powder 12-26 route. [facility] 14:11: 11 potassium Yes Take by [facility] citrate-cit 12-26 mouth. Health ron acid 14:11: (Cytra-K-Cr 11 ystals) [id number] MG packet omeprazole Yes 40mg 40 mg. [facility] (PriLOSEC) 12-[address] [facility] [address] 14:11: capsule 11 fexofenadin Yes [facility] ([facility] 12-[facility] Allergy) 14:11: 180 MG 11 tablet Naproxen 2021-0 Yes 220mg 220 mg. [facility] Sodium 12-26 [facility] (Aleve) 220 14:11: MG capsule 11 Multiple 2020-0 Yes [facility] Vitamin 12-26 [facility] (Multi 14:11: Vitamin 11 Daily) tablet Ascorbic 2020-0 Yes 500mg 500 mg. [facility] Acid 12-26 [facility] (Vitamin C) 14:11: 500 MG 11 capsule pravastatin 0 Yes 20mg 20 mg. [facility] (Pravachol) 12-26 [facility] 20 MG 14:11: tablet 11 alpha 0 Yes 400U 400 Units. [facility] tocopherol 12-26 [facility] (Vitamin E) 14:11: 400 units 11 capsule potassium Yes Take by [facility] citrate-cit 12-26 mouth. Health ron acid 14:11: (Cytra-K-Cr 11 ystals) [id number] MG packet potassium Yes [facility] citrate CR 12-26 [facility] (Urocit-K-1 14:11: 0) 10 mEq 11 ER tablet Omeprazole Yes by Other [facility] powder 12-26 route. [facility] 14:11: 11 potassium 0 Yes Take by [facility] citrate-cit 12-26 mouth. Health ron acid 14:11: (Cytra-K-Cr 11 ystals) [id number] MG packet omeprazole 0 Yes 40mg 40 mg. [facility] (PriLOSEC) 12-[address] [facility] [address] 14:11: capsule 11 fexofenadin Yes [facility] ([facility] 12[facility] Allergy) 14:11: 180 MG 11 tablet Naproxen 0 Yes 220mg 220 mg. [facility] Sodium 12-26 [facility] (Aleve) 220 14:11: MG capsule 11 Multiple 2020-0 Yes [facility] Vitamin 12-26 [facility] (Multi 14:11: Vitamin 11 Daily) tablet Ascorbic 0 Yes 500mg 500 mg. [facility] Acid 12-26 [facility] (Vitamin C) 14:11: 500 MG 11 capsule pravastatin 2020-0 Yes 20mg 20 mg. [facility] (Pravachol) 12-26 [facility] 20 MG 14:11: tablet 11 alpha 0 Yes 400U 400 Units. [facility] tocopherol 12-26 [facility] (Vitamin E) 14:11: 400 units 11 capsule omeprazole 2020-0 Yes 40mg 40 mg. [facility] (PriLOSEC) 12-[address] [facility] [address] 14:11: capsule 11 potassium Yes [facility] citrate CR 12-26 [facility] (Urocit-K-1 14:11: 0) 10 mEq 11 ER tablet Omeprazole Yes by Other [facility] powder 12-26 route. [facility] 14:11: 11 potassium Yes Take by [facility] citrate-cit 12-26 mouth. Health ron acid 14:11: (Cytra-K-Cr 11 ystals) [id number] MG packet omeprazole Yes 40mg 40 mg. [facility] (PriLOSEC) 12-[address] [facility] [address] 14:11: capsule 11 fexofenadin Yes [facility] ([facility] 12[facility] Allergy) 14:11: 180 MG 11 tablet Naproxen Yes 220mg 220 mg. [facility] Sodium 12-26 [facility] (Aleve) 220 14:11: MG capsule 11 Multiple Yes [facility] Vitamin 12-26 [facility] (Multi 14:11: Vitamin 11 Daily) tablet Ascorbic Yes 500mg 500 mg. [facility] Acid 12-26 [facility] (Vitamin C) 14:11: 500 MG 11 capsule pravastatin Yes 20mg 20 mg. [facility] (Pravachol) 12-26 [facility] 20 MG 14:11: tablet 11 alpha Yes 400U 400 Units. [facility] tocopherol 12-26 [facility] (Vitamin E) 14:11: 400 units 11 capsule fexofenadin Yes [facility] ([facility] 12[facility] All[facility]) 14:11: 180 MG 11 tablet potassium Yes [facility] citrate CR 12-26 [facility] (Urocit-K-1 14:11: 0) 10 mEq 11 ER tablet Omeprazole Yes by Other [facility] powder 12-26 route. [facility] 14:11: 11 potassium Yes Take by [facility] citrate-cit 12-26 mouth. Health ron acid 14:11: (Cytra-K-Cr 11 ystals) [id number] MG packet omeprazole Yes 40mg 40 mg. [facility] (PriLOSEC) 12-[address] [facility] [address] 14:11: capsule 11 fexofenadin Yes [facility] ([facility] 12[facility] All[facility]) 14:11: 180 MG 11 tablet Naproxen 2021-0 Yes 220mg 220 mg. [facility] Sodium 12-26 [facility] (Aleve) 220 14:11: MG capsule 11 Multiple 2020-0 Yes [facility] Vitamin - [facility] (Multi 14:11: Vitamin 11 Daily) tablet Ascorbic 2020-0 Yes 500mg 500 mg. [facility] Acid 12-26 [facility] (Vitamin C) 14:11: 500 MG 11 capsule pravastatin 0 Yes 20mg 20 mg. [facility] (Pravachol) 12-26 [facility] 20 MG 14:11: tablet 11 alpha 0 Yes 400U 400 Units. [facility] tocopherol 12-26 [facility] (Vitamin E) 14:11: 400 units 11 capsule hydroCHLORO 0 Yes 12.5mg 12.5 mg. [facility] thiazide 12-26 [facility] (HYDRODiuri 14:11: l) 12.5 MG 11 tablet potassium Yes [facility] citrate CR 12-26 [facility] (Urocit-K-1 14:11: 0) 10 mEq 11 ER tablet Omeprazole Yes by Other [facility] powder 12-26 route. [facility] 14:11: 11 potassium Yes Take by [facility] citrate-cit 12-26 mouth. Health ron acid 14:11: (Cytra-K-Cr 11 ystals) [id number] MG packet omeprazole 0 Yes 40mg 40 mg. [facility] (PriLOSEC) 12-[address] [facility] [address] 14:11: capsule 11 fexofenadin 0 Yes [facility] ([facility] 12-[facility] Allergy) 14:11: 180 MG 11 tablet Naproxen 0 Yes 220mg 220 mg. [facility] Sodium 12-26 [facility] (Aleve) 220 14:11: MG capsule 11 Multiple 0 Yes [facility] Vitamin - [facility] (Multi 14:11: Vitamin 11 Daily) tablet Ascorbic 0 Yes 500mg 500 mg. [facility] Acid 12-26 [facility] (Vitamin C) 14:11: 500 MG 11 capsule pravastatin 0 Yes 20mg 20 mg. [facility] (Pravachol) 12-26 [facility] 20 MG 14:11: tablet 11 alpha 0 Yes 400U 400 Units. [facility] tocopherol 12-26 [facility] (Vitamin E) 14:11: 400 units 11 capsule Naproxen 2020-0 Yes 220mg 220 mg. [facility] Sodium 12-26 [facility] (Aleve) 220 14:11: MG capsule 11 potassium 0 Yes [facility] citrate CR - [facility] (Urocit-K-1 14:11: 0) 10 mEq 11 ER tablet Omeprazole 0 Yes by Other [facility] powder 12-26 route. [facility] 14:11: 11 potassium 0 Yes Take by [facility] citrate-cit 12-26 mouth. Health ron acid 14:11: (Cytra-K-Cr 11 ystals) [id number] MG packet omeprazole 0 Yes 40mg 40 mg. [facility] (PriLOSEC) 12-[address] [facility] [address] 14:11: capsule 11 fexofenadin 0 Yes [facility] ([facility] 12[facility] All[facility]) 14:11: 180 MG 11 tablet Naproxen 0 Yes 220mg 220 mg. [facility] Sodium 12-26 [facility] (Aleve) 220 14:11: MG capsule 11 Multiple 0 Yes [facility] Vitamin 12-26 [facility] (Multi 14:11: Vitamin 11 Daily) tablet Ascorbic 0 Yes 500mg 500 mg. [facility] Acid 12-26 [facility] (Vitamin C) 14:11: 500 MG 11 capsule pravastatin 0 Yes 20mg 20 mg. [facility] (Pravachol) 12-26 [facility] 20 MG 14:11: tablet 11 alpha 0 Yes 400U 400 Units. [facility] tocopherol 12-26 [facility] (Vitamin E) 14:11: 400 units 11 capsule Multiple 0 Yes [facility] Vitamin 12-26 [facility] (Multi 14:11: Vitamin 11 Daily) tablet potassium Yes [facility] citrate CR 12-26 [facility] (Urocit-K-1 14:11: 0) 10 mEq 11 ER tablet Omeprazole 0 Yes by Other [facility] powder 12-26 route. [facility] 14:11: 11 potassium 0 Yes Take by [facility] citrate-cit 12-26 mouth. Health ron acid 14:11: (Cytra-K-Cr 11 ystals) [id number] MG packet omeprazole 0 Yes 40mg 40 mg. [facility] (PriLOSEC) 12-[address] [facility] [address] 14:11: capsule 11 fexofenadin 0 Yes [facility] ([facility] 12[facility] All[facility]) 14:11: 180 MG 11 tablet Naproxen 0 Yes 220mg 220 mg. [facility] Sodium 5 [facility] (Aleve) 220 14:11: MG capsule 11 Multiple 2020-0 Yes [facility] Vitamin - [facility] (Multi 14:11: Vitamin 11 Daily) tablet Ascorbic 2020-0 Yes 500mg 500 mg. [facility] Acid 12-26 [facility] (Vitamin C) 14:11: 500 MG 11 capsule pravastatin 0 Yes 20mg 20 mg. [facility] (Pravachol) 12-26 [facility] 20 MG 14:11: tablet 11 alpha 0 Yes 400U 400 Units. [facility] tocopherol 12-26 [facility] (Vitamin E) 14:11: 400 units 11 capsule Ascorbic 0 Yes 500mg 500 mg. [facility] Acid 12-26 [facility] (Vitamin C) 14:11: 500 MG 11 capsule potassium Yes [facility] citrate CR 12-26 [facility] (Urocit-K-1 14:11: 0) 10 mEq 11 ER tablet Omeprazole Yes by Other [facility] powder 12-26 route. [facility] 14:11: 11 potassium Yes Take by [facility] citrate-cit 12-26 mouth. Health ron acid 14:11: (Cytra-K-Cr 11 ystals) [id number] MG packet omeprazole Yes 40mg 40 mg. [facility] (PriLOSEC) 12-[address] [facility] [address] 14:11: capsule 11 fexofenadin Yes [facility] ([facility] 12-26 [facility] Allergy) 14:11: 180 MG 11 tablet Naproxen 0 Yes 220mg 220 mg. [facility] Sodium 12-26 [facility] (Aleve) 220 14:11: MG capsule 11 Multiple 0 Yes [facility] Vitamin 12-26 [facility] (Multi 14:11: Vitamin 11 Daily) tablet Ascorbic 2020-0 Yes 500mg 500 mg. [facility] Acid 12-26 [facility] (Vitamin C) 14:11: 500 MG 11 capsule pravastatin 0 Yes 20mg 20 mg. [facility] (Pravachol) 12-26 [facility] 20 MG 14:11: tablet 11 alpha 0 Yes 400U 400 Units. [facility] tocopherol 12-26 [facility] (Vitamin E) 14:11: 400 units 11 capsule pravastatin 2020-0 Yes 20mg 20 mg. [facility] (Pravachol) 12-26 [facility] 20 MG 14:11: tablet 11 potassium 0 Yes [facility] citrate CR 12-26 [facility] (Urocit-K-1 14:11: 0) 10 mEq 11 ER tablet Omeprazole Yes by Other [facility] powder 12-26 route. [facility] 14:11: 11 potassium Yes Take by [facility] citrate-cit 12-26 mouth. Health ron acid 14:11: (Cytra-K-Cr 11 ystals) [id number] MG packet omeprazole Yes 40mg 40 mg. [facility] (PriLOSEC) 12-[address] [facility] [address] 14:11: capsule 11 fexofenadin Yes [facility] ([facility] 12-26 [facility] Allergy) 14:11: 180 MG 11 tablet Naproxen Yes 220mg 220 mg. [facility] Sodium 12-26 [facility] (Aleve) 220 14:11: MG capsule 11 Multiple Yes [facility] Vitamin 12-26 [facility] (Multi 14:11: Vitamin 11 Daily) tablet Ascorbic Yes 500mg 500 mg. [facility] Acid 12-26 [facility] (Vitamin C) 14:11: 500 MG 11 capsule pravastatin Yes 20mg 20 mg. [facility] (Pravachol) 12-26 [facility] 20 MG 14:11: tablet 11 alpha Yes 400U 400 Units. [facility] tocopherol 12-26 [facility] (Vitamin E) 14:11: 400 units 11 capsule alpha Yes 400U 400 Units. [facility] tocopherol 12-26 [facility] (Vitamin E) 14:11: 400 units 11 capsule potassium Yes [facility] citrate CR 12-26 [facility] (Urocit-K-1 14:11: 0) 10 mEq 11 ER tablet Omeprazole Yes by Other [facility] powder 12-26 route. [facility] 14:11: 11 potassium 0 Yes Take by [facility] citrate-cit 12-26 mouth. Health ron acid 14:11: (Cytra-K-Cr 11 ystals) 1214-5721 MG packet potassium Yes [facility] citrate CR 12-26 [facility] (Urocit-K-1 14:11: 0) 10 mEq 11 ER tablet Omeprazole 0 Yes by Other [facility] powder 12-26 route. [facility] 14:11: 11 potassium 0 Yes Take by [facility] citrate-cit 12-26 mouth. Health ron acid 14:11: (Cytra-K-Cr 11 ystals) [id number] MG packet Ascorbic 0 Yes 500mg 500 mg. [facility] Acid 12-25 [facility] (Vitamin C) 13:54: 500 MG 08 capsule pravastatin Yes 20mg 20 mg. [facility] (Pravachol) 5-25 Health 20 MG 13:54: tablet 08 alpha Yes 400U 400 Units. [facility] tocopherol 525 [facility] (Vitamin E) 13:54: 400 units 08 capsule potassium Yes UT citrate CR -25 Health (Urocit-K-1 13:54: 0) 10 mEq 08 ER tablet omeprazole Yes 40mg 40 mg. [facility] (PriLOSEC) [address] 13:54: capsule 07 fexofenadin Yes UT e ([place] 25 [facility] Allergy) 13:54: 180 MG 07 tablet hydroCHLORO Yes 12.5mg 12.5 mg. [facility] thiazide 12-25 Health (HYDRODiuri 13:54: l) 12.5 MG 07 tablet Naproxen Yes 220mg 220 mg. [facility] Sodium 12-25 [facility] (Aleve) 220 13:54: MG capsule 07 Multiple Yes UT Vitamin 5-25 Health (Multi 13:54: Vitamin 07 Daily) tablet lisinopril- 2020- Yes 1{tbl} QD Take 1 UT hydroCHLORO 4-09 tablet by [facility] thiazide 00:00: mouth 1 10-12.5 MG 00 (one) time tablet each day. lisinopril- 2020-0 Yes 1{tbl} QD Take 1 UT hydroCHLORO 4-09 tablet by [facility] thiazide 00:00: mouth 1 10-12.5 MG 00 (one) time tablet each day. lisinopril- 2020-0 Yes 1{tbl} QD Take 1 UT hydroCHLORO 4-09 tablet by [facility] thiazide 00:00: mouth 1 10-12.5 MG 00 (one) time tablet each day. lisinopril- 2020-0 Yes 1{tbl} QD Take 1 UT hydroCHLORO 4-09 tablet by [facility] thiazide 00:00: mouth 1 10-12.5 MG 00 (one) time tablet each day. lisinopril- 2020-0 Yes 1{tbl} QD Take 1 UT hydroCHLORO 4-09 tablet by [facility] thiazide 00:00: mouth 1 10-12.5 MG 00 (one) time tablet each day. lisinopril- 2021-0 Yes 1{tbl} QD Take 1 UT hydroCHLORO 4-09 tablet by [facility] thiazide 00:00: mouth 1 10-12.5 MG 00 (one) time tablet each day. lisinopril- 2021-0 Yes 1{tbl} QD Take 1 UT hydroCHLORO 4-09 tablet by [facility] thiazide 00:00: mouth 1 10-12.5 MG 00 (one) time tablet each day. lisinopril- 2021-0 Yes 1{tbl} QD Take 1 UT hydroCHLORO 4-09 tablet by [facility] thiazide 00:00: mouth 1 10-12.5 MG 00 (one) time tablet each day. lisinopril- 2021-0 Yes 1{tbl} QD Take 1 UT hydroCHLORO 4-09 tablet by [facility] thiazide 00:00: mouth 1 10-12.5 MG 00 (one) time tablet each day. lisinopril- 2021-0 Yes 1{tbl} QD Take 1 UT hydroCHLORO 4-09 tablet by [facility] thiazide 00:00: mouth 1 10-12.5 MG 00 (one) time tablet each day. lisinopril- 2021-0 Yes 1{tbl} QD Take 1 UT hydroCHLORO 4-09 tablet by [facility] thiazide 00:00: mouth 1 10-12.5 MG 00 (one) time tablet each day. lisinopril- 2021-0 Yes 1{tbl} QD Take 1 UT hydroCHLORO 4-09 tablet by [facility] thiazide 00:00: mouth 1 10-12.5 MG 00 (one) time tablet each day. lisinopril- 2021-0 Yes 1{tbl} QD Take 1 UT hydroCHLORO 4-09 tablet by [facility] thiazide 00:00: mouth 1 10-12.5 MG 00 (one) time tablet each day. lisinopril- 2021-0 Yes 1{tbl} QD Take 1 UT hydroCHLORO 4-09 tablet by [facility] thiazide 00:00: mouth 1 10-12.5 MG 00 (one) time tablet each day. lisinopril- 2021-0 Yes 1{tbl} QD Take 1 UT hydroCHLORO 4-09 tablet by [facility] thiazide 00:00: mouth 1 10-12.5 MG 00 (one) time tablet each day. lisinopril- 2021-0 Yes 1{tbl} QD Take 1 UT hydroCHLORO 4-09 tablet by [facility] thiazide 00:00: mouth 1 10-12.5 MG 00 (one) time tablet each day. lisinopril- 2021-0 Yes 1{tbl} QD Take 1 UT hydroCHLORO 4-09 tablet by [facility] thiazide 00:00: mouth 1 10-12.5 MG 00 (one) time tablet each day. lisinopril- 2021-0 Yes 1{tbl} QD Take 1 UT hydroCHLORO 4-09 tablet by [facility] thiazide 00:00: mouth 1 10-12.5 MG 00 (one) time tablet each day. lisinopril- 2021-0 Yes 1{tbl} QD Take 1 UT hydroCHLORO 4-09 tablet by [facility] thiazide 00:00: mouth 1 10-12.5 MG 00 (one) time tablet each day. lisinopril- 2021-0 Yes 1{tbl} QD Take 1 UT hydroCHLORO 4-09 tablet by [facility] thiazide 00:00: mouth 1 10-12.5 MG 00 (one) time tablet each day. lisinopril- 2021-0 Yes 1{tbl} QD Take 1 UT hydroCHLORO 4-09 tablet by [facility] thiazide 00:00: mouth 1 10-12.5 MG 00 (one) time tablet each day. lisinopril- 2021-0 Yes 1{tbl} QD Take 1 UT hydroCHLORO 4-09 tablet by [facility] thiazide 00:00: mouth 1 10-12.5 MG 00 (one) time tablet each day. lisinopril- 2021-0 Yes 1{tbl} QD Take 1 UT hydroCHLORO 4-09 tablet by [facility] thiazide 00:00: mouth 1 10-12.5 MG 00 (one) time tablet each day. lisinopril- 1-0 Yes 1{tbl} QD Take 1 UT hydroCHLORO 4-09 tablet by [facility] thiazide 00:00: mouth 1 10-12.5 MG 00 (one) time tablet each day. lisinopril- 2020-0 Yes 1{tbl} QD Take 1 UT hydroCHLORO 4-09 tablet by [facility] thiazide 00:00: mouth 1 10-12.5 MG 00 (one) time tablet each day. lisinopril- 2020-0 Yes 1{tbl} QD Take 1 UT hydroCHLORO 4-09 tablet by [facility] thiazide 00:00: mouth 1 10-12.5 MG 00 (one) time tablet each day. lisinopril- 2020-0 Yes 1{tbl} QD Take 1 UT hydroCHLORO 4-09 tablet by [facility] thiazide 00:00: mouth 1 10-12.5 MG 00 (one) time tablet each day. lisinopril- 2020-0 Yes 1{tbl} QD Take 1 UT hydroCHLORO 4-09 tablet by [facility] thiazide 00:00: mouth 1 10-12.5 MG 00 (one) time tablet each day. lisinopril- 2020-0 Yes 1{tbl} QD Take 1 UT hydroCHLORO 4-09 tablet by [facility] thiazide 00:00: mouth 1 10-12.5 MG 00 (one) time tablet each day. atorvastati 2020- Yes TAKE 1 UT n (Lipitor) 4-02 TABLET BY [facility] lt 40 MG 00:00: MOUTH ONCE tablet 00 DAILY AT BEDTIME (STOP PRAVASTATI N) atorvastati 2020-0 Yes TAKE 1 UT n (Lipitor) 4-02 TABLET BY [facility] 40 MG 00:00: MOUTH ONCE tablet 00 DAILY AT BEDTIME (STOP PRAVASTATI N) atorvastati 2020-0 Yes TAKE 1 UT n (Lipitor) 4-02 TABLET BY [facility] 40 MG 00:00: MOUTH ONCE tablet 00 DAILY AT BEDTIME (STOP PRAVASTATI N) atorvastati 2020-0 Yes TAKE 1 UT n (Lipitor) 4-02 TABLET BY [facility] 40 MG 00:00: MOUTH ONCE tablet 00 DAILY AT BEDTIME (STOP PRAVASTATI N) atorvastati Yes TAKE 1 UT n (Lipitor) 4-02 TABLET BY [facility] 40 MG 00:00: MOUTH ONCE tablet 00 DAILY AT BEDTIME (STOP PRAVASTATI N) atorvastati 0 Yes TAKE 1 UT n (Lipitor) 4-02 TABLET BY [facility] 40 MG 00:00: MOUTH ONCE tablet 00 DAILY AT BEDTIME (STOP PRAVASTATI N) atorvastati Yes TAKE 1 UT n (Lipitor) 4-02 TABLET BY a lth 40 MG 00:00: MOUTH ONCE tablet 00 DAILY AT BEDTIME (STOP PRAVASTATI N) atorvastati Yes TAKE 1 UT n (Lipitor) 4-02 TABLET BY a lth 40 MG 00:00: MOUTH ONCE tablet 00 DAILY AT BEDTIME (STOP PRAVASTATI N) atorvastati Yes TAKE 1 UT n (Lipitor) 4-02 TABLET BY [facility] lth 40 MG 00:00: MOUTH ONCE tablet 00 DAILY AT BEDTIME (STOP PRAVASTATI N) atorvastati Yes TAKE 1 UT n (Lipitor) 4-02 TABLET BY a lth 40 MG 00:00: MOUTH ONCE tablet 00 DAILY AT BEDTIME (STOP PRAVASTATI N) atorvastati Yes TAKE 1 UT n (Lipitor) 4-02 TABLET BY a lth 40 MG 00:00: MOUTH ONCE tablet 00 DAILY AT BEDTIME (STOP PRAVASTATI N) atorvastati Yes TAKE 1 UT n (Lipitor) 4-02 TABLET BY a lth 40 MG 00:00: MOUTH ONCE tablet 00 DAILY AT BEDTIME (STOP PRAVASTATI N) atorvastati Yes TAKE 1 UT n (Lipitor) 4-02 TABLET BY a lth 40 MG 00:00: MOUTH ONCE tablet 00 DAILY AT BEDTIME (STOP PRAVASTATI N) atorvastati Yes TAKE 1 UT n (Lipitor) 4-02 TABLET BY a lth 40 MG 00:00: MOUTH ONCE tablet 00 DAILY AT BEDTIME (STOP PRAVASTATI N) atorvastati 2021-0 Yes TAKE 1 UT n (Lipitor) 4-02 TABLET BY [facility] 40 MG 00:00: MOUTH ONCE tablet 00 DAILY AT BEDTIME (STOP PRAVASTATI N) atorvastati 0 Yes TAKE 1 UT n (Lipitor) 4-02 TABLET BY [facility] 40 MG 00:00: MOUTH ONCE tablet 00 DAILY AT BEDTIME (STOP PRAVASTATI N) atorvastati 0 Yes TAKE 1 UT n (Lipitor) 4-02 TABLET BY a lth 40 MG 00:00: MOUTH ONCE tablet 00 DAILY AT BEDTIME (STOP PRAVASTATI N) atorvastati 0 Yes TAKE 1 UT n (Lipitor) 4-02 TABLET BY a lth 40 MG 00:00: MOUTH ONCE tablet 00 DAILY AT BEDTIME (STOP PRAVASTATI N) atorvastati Yes TAKE 1 UT n (Lipitor) 4-02 TABLET BY a lth 40 MG 00:00: MOUTH ONCE tablet 00 DAILY AT BEDTIME (STOP PRAVASTATI N) atorvastati Yes TAKE 1 UT n (Lipitor) 4-02 TABLET BY a lth 40 MG 00:00: MOUTH ONCE tablet 00 DAILY AT BEDTIME (STOP PRAVASTATI N) atorvastati 0 Yes TAKE 1 UT n (Lipitor) 4-02 TABLET BY a lth 40 MG 00:00: MOUTH ONCE tablet 00 DAILY AT BEDTIME (STOP PRAVASTATI N) atorvastati 0 Yes TAKE 1 UT n (Lipitor) 4-02 TABLET BY a lth 40 MG 00:00: MOUTH ONCE tablet 00 DAILY AT BEDTIME (STOP PRAVASTATI N) atorvastati 0 Yes TAKE 1 UT n (Lipitor) 4-02 TABLET BY a lth 40 MG 00:00: MOUTH ONCE tablet 00 DAILY AT BEDTIME (STOP PRAVASTATI N) atorvastati 0 Yes TAKE 1 UT n (Lipitor) 4-02 TABLET BY a lth 40 MG 00:00: MOUTH ONCE tablet 00 DAILY AT BEDTIME (STOP PRAVASTATI N) atorvastati 0 Yes TAKE 1 UT n (Lipitor) 4-02 TABLET BY a lth 40 MG 00:00: MOUTH ONCE tablet 00 DAILY AT BEDTIME (STOP PRAVASTATI N) atorvastati Yes TAKE 1 UT n (Lipitor) 4-02 TABLET BY [facility] lth 40 MG 00:00: MOUTH ONCE tablet 00 DAILY AT BEDTIME (STOP PRAVASTATI N) atorvastati Yes TAKE 1 UT n (Lipitor) 4-02 TABLET BY [facility] lth 40 MG 00:00: MOUTH ONCE tablet 00 DAILY AT BEDTIME (STOP PRAVASTATI N) atorvastati Yes TAKE 1 UT n (Lipitor) 4-02 TABLET BY [facility] lth 40 MG 00:00: MOUTH ONCE tablet 00 DAILY AT BEDTIME (STOP PRAVASTATI N) atorvastati Yes TAKE 1 UT n (Lipitor) 4-02 TABLET BY [facility] lth 40 MG 00:00: MOUTH ONCE tablet 00 DAILY AT BEDTIME (STOP PRAVASTATI N) levothyroxi Yes TAKE 1 UT ne 4-01 TABLET BY Health (Synthroid, 00:00: MOUTH ONCE Levoxyl) 25 00 DAILY 30 MCG tablet MINUTES BEFORE BREAKFAST levothyroxi Yes TAKE 1 UT ne 4-01 TABLET BY Health (Synthroid, 00:00: MOUTH ONCE Levoxyl) 25 00 DAILY 30 MCG tablet MINUTES BEFORE BREAKFAST levothyroxi Yes TAKE 1 UT ne 4-01 TABLET BY Health (Synthroid, 00:00: MOUTH ONCE Levoxyl) 25 00 DAILY 30 MCG tablet MINUTES BEFORE BREAKFAST levothyroxi Yes TAKE 1 UT ne 4-01 TABLET BY Health (Synthroid, 00:00: MOUTH ONCE Levoxyl) 25 00 DAILY 30 MCG tablet MINUTES BEFORE BREAKFAST levothyroxi Yes TAKE 1 UT ne 4-01 TABLET BY Health (Synthroid, 00:00: MOUTH ONCE Levoxyl) 25 00 DAILY 30 MCG tablet MINUTES BEFORE BREAKFAST levothyroxi Yes TAKE 1 UT ne 4-01 TABLET BY Health (Synthroid, 00:00: MOUTH ONCE Levoxyl) 25 00 DAILY 30 MCG tablet MINUTES BEFORE BREAKFAST levothyroxi Yes TAKE 1 UT ne 4-01 TABLET BY Health (Synthroid, 00:00: MOUTH ONCE Levoxyl) 25 00 DAILY 30 MCG tablet MINUTES BEFORE BREAKFAST levothyroxi Yes TAKE 1 UT ne 4-01 TABLET BY Health (Synthroid, 00:00: MOUTH ONCE Levoxyl) 25 00 DAILY 30 MCG tablet MINUTES BEFORE BREAKFAST levothyroxi Yes TAKE 1 UT ne 4-01 TABLET BY Health (Synthroid, 00:00: MOUTH ONCE Levoxyl) 25 00 DAILY 30 MCG tablet MINUTES BEFORE BREAKFAST levothyroxi Yes TAKE 1 UT ne 4-01 TABLET BY Health (Synthroid, 00:00: MOUTH ONCE Levoxyl) 25 00 DAILY 30 MCG tablet MINUTES BEFORE BREAKFAST levothyroxi Yes TAKE 1 UT ne 4-01 TABLET BY Health (Synthroid, 00:00: MOUTH ONCE Levoxyl) 25 00 DAILY 30 MCG tablet MINUTES BEFORE BREAKFAST levothyroxi Yes TAKE 1 UT ne 4-01 TABLET BY Health (Synthroid, 00:00: MOUTH ONCE Levoxyl) 25 00 DAILY 30 MCG tablet MINUTES BEFORE BREAKFAST levothyroxi Yes TAKE 1 UT ne 4-01 TABLET BY Health (Synthroid, 00:00: MOUTH ONCE Levoxyl) 25 00 DAILY 30 MCG tablet MINUTES BEFORE BREAKFAST levothyroxi Yes TAKE 1 UT ne 4-01 TABLET BY Health (Synthroid, 00:00: MOUTH ONCE Levoxyl) 25 00 DAILY 30 MCG tablet MINUTES BEFORE BREAKFAST levothyroxi Yes TAKE 1 UT ne 4-01 TABLET BY Health (Synthroid, 00:00: MOUTH ONCE Levoxyl) 25 00 DAILY 30 MCG tablet MINUTES BEFORE BREAKFAST levothyroxi Yes TAKE 1 UT ne 4-01 TABLET BY Health (Synthroid, 00:00: MOUTH ONCE Levoxyl) 25 00 DAILY 30 MCG tablet MINUTES BEFORE BREAKFAST levothyroxi Yes TAKE 1 UT ne 4-01 TABLET BY Health (Synthroid, 00:00: MOUTH ONCE Levoxyl) 25 00 DAILY 30 MCG tablet MINUTES BEFORE BREAKFAST levothyroxi Yes TAKE 1 UT ne 4-01 TABLET BY Health (Synthroid, 00:00: MOUTH ONCE Levoxyl) 25 00 DAILY 30 MCG tablet MINUTES BEFORE BREAKFAST levothyroxi Yes TAKE 1 UT ne 4-01 TABLET BY Health (Synthroid, 00:00: MOUTH ONCE Levoxyl) 25 00 DAILY 30 MCG tablet MINUTES BEFORE BREAKFAST levothyroxi Yes TAKE 1 UT ne 4-01 TABLET BY Health (Synthroid, 00:00: MOUTH ONCE Levoxyl) 25 00 DAILY 30 MCG tablet MINUTES BEFORE BREAKFAST levothyroxi Yes TAKE 1 UT ne 4-01 TABLET BY Health (Synthroid, 00:00: MOUTH ONCE Levoxyl) 25 00 DAILY 30 MCG tablet MINUTES BEFORE BREAKFAST levothyroxi Yes TAKE 1 UT ne 4-01 TABLET BY Health (Synthroid, 00:00: MOUTH ONCE Levoxyl) 25 00 DAILY 30 MCG tablet MINUTES BEFORE BREAKFAST levothyroxi Yes TAKE 1 UT ne 4-01 TABLET BY Health (Synthroid, 00:00: MOUTH ONCE Levoxyl) 25 00 DAILY 30 MCG tablet MINUTES BEFORE BREAKFAST levothyroxi Yes TAKE 1 UT ne 4-01 TABLET BY Health (Synthroid, 00:00: MOUTH ONCE Levoxyl) 25 00 DAILY 30 MCG tablet MINUTES BEFORE BREAKFAST levothyroxi Yes TAKE 1 UT ne 4-01 TABLET BY Health (Synthroid, 00:00: MOUTH ONCE Levoxyl) 25 00 DAILY 30 MCG tablet MINUTES BEFORE BREAKFAST levothyroxi Yes TAKE 1 UT ne 4-01 TABLET BY Health (Synthroid, 00:00: MOUTH ONCE Levoxyl) 25 00 DAILY 30 MCG tablet MINUTES BEFORE BREAKFAST levothyroxi Yes TAKE 1 UT ne 4-01 TABLET BY Health (Synthroid, 00:00: MOUTH ONCE Levoxyl) 25 00 DAILY 30 MCG tablet MINUTES BEFORE BREAKFAST levothyroxi Yes TAKE 1 UT ne 4-01 TABLET BY Health (Synthroid, 00:00: MOUTH ONCE Levoxyl) 25 00 DAILY 30 MCG tablet MINUTES BEFORE BREAKFAST levothyroxi Yes TAKE 1 UT ne 4-01 TABLET BY Health (Synthroid, 00:00: MOUTH ONCE Levoxyl) 25 00 DAILY 30 MCG tablet MINUTES BEFORE BREAKFAST [place] 0.7 % 2019-08 Yes INSTILL 1 U T solution 1-03 DROP INTO Health 00:00: EACH EYE 00 ONCE DAILY IN THE MORNING [place] 0.7 % 2019-08 Yes INSTILL 1 U T solution 1-03 DROP INTO Health 00:00: EACH EYE 00 ONCE DAILY IN THE MORNING [place] 0.7 % 2020-1 Yes INSTILL 1 U T solution 1-03 DROP INTO Health 00:00: EACH EYE 00 ONCE DAILY IN THE MORNING [place] 0.7 % 2020-1 Yes INSTILL 1 U T solution 1-03 DROP INTO Health 00:00: EACH EYE 00 ONCE DAILY IN THE MORNING [place] 0.7 % 2020-1 Yes INSTILL 1 U T solution 1-03 DROP INTO Health 00:00: EACH EYE 00 ONCE DAILY IN THE MORNING [place] 0.7 % 2020-1 Yes INSTILL 1 U T solution 1-03 DROP INTO Health 00:00: EACH EYE 00 ONCE DAILY IN THE MORNING [place] 0.7 % 2020-1 Yes INSTILL 1 U T solution 1-03 DROP INTO Health 00:00: EACH EYE 00 ONCE DAILY IN THE MORNING [place] 0.7 % 2020-1 Yes INSTILL 1 U T solution 1-03 DROP INTO Health 00:00: EACH EYE 00 ONCE DAILY IN THE MORNING [place] 0.7 % 2020-1 Yes INSTILL 1 U T solution 1-03 DROP INTO Health 00:00: EACH EYE 00 ONCE DAILY IN THE MORNING [place] 0.7 % 2020-1 Yes INSTILL 1 U T solution 1-03 DROP INTO Health 00:00: EACH EYE 00 ONCE DAILY IN THE MORNING [place] 0.7 % 2020-1 Yes INSTILL 1 U T solution 1-03 DROP INTO Health 00:00: EACH EYE 00 ONCE DAILY IN THE MORNING [place] 0.7 % 2020-1 Yes INSTILL 1 U T solution 1-03 DROP INTO Health 00:00: EACH EYE 00 ONCE DAILY IN THE MORNING [place] 0.7 % 2020-1 Yes INSTILL 1 U T solution 1-03 DROP INTO Health 00:00: EACH EYE 00 ONCE DAILY IN THE MORNING [place] 0.7 % 2020-1 Yes INSTILL 1 U T solution 1-03 DROP INTO Health 00:00: EACH EYE 00 ONCE DAILY IN THE MORNING [place] 0.7 % 2020-1 Yes INSTILL 1 U T solution 1-03 DROP INTO Health 00:00: EACH EYE 00 ONCE DAILY IN THE MORNING [place] 0.7 % 2020-1 Yes INSTILL 1 U T solution 1-03 DROP INTO Health 00:00: EACH EYE 00 ONCE DAILY IN THE MORNING [place] 0.7 % 2020-1 Yes INSTILL 1 U T solution 1-03 DROP INTO Health 00:00: EACH EYE 00 ONCE DAILY IN THE MORNING [place] 0.7 % 2020-1 Yes INSTILL 1 U T solution 1-03 DROP INTO Health 00:00: EACH EYE 00 ONCE DAILY IN THE MORNING [place] 0.7 % 2020-1 Yes INSTILL 1 U T solution 1-03 DROP INTO Health 00:00: EACH EYE 00 ONCE DAILY IN THE MORNING [place] 0.7 % 2020-1 Yes INSTILL 1 U T solution 1-03 DROP INTO Health 00:00: EACH EYE 00 ONCE DAILY IN THE MORNING [place] 0.7 % 2020-1 Yes INSTILL 1 U T solution 1-03 DROP INTO Health 00:00: EACH EYE 00 ONCE DAILY IN THE MORNING [place] 0.7 % 2020-1 Yes INSTILL 1 U T solution 1-03 DROP INTO Health 00:00: EACH EYE 00 ONCE DAILY IN THE MORNING [place] 0.7 % 2020-1 Yes INSTILL 1 U T solution 1-03 DROP INTO Health 00:00: EACH EYE 00 ONCE DAILY IN THE MORNING [place] 0.7 % 2020-1 Yes INSTILL 1 U T solution 1-03 DROP INTO Health 00:00: EACH EYE 00 ONCE DAILY IN THE MORNING [place] 0.7 % 2020-1 Yes INSTILL 1 U T solution 1-03 DROP INTO Health 00:00: EACH EYE 00 ONCE DAILY IN THE MORNING [place] 0.7 % 2020-1 Yes INSTILL 1 U T solution 1-03 DROP INTO Health 00:00: EACH EYE 00 ONCE DAILY IN THE MORNING [place] 0.7 % 2020-1 Yes INSTILL 1 U T solution 1-03 DROP INTO Health 00:00: EACH EYE 00 ONCE DAILY IN THE MORNING [place] 0.7 % 2020-1 Yes INSTILL 1 U T solution 1-03 DROP INTO Health 00:00: EACH EYE 00 ONCE DAILY IN THE MORNING [place] 0.7 % 2020-1 Yes INSTILL 1 U T solution 1-03 DROP INTO Health 00:00: EACH EYE 00 ONCE DAILY IN THE MORNING [place] 2020-0 Yes INSTILL 1 UT 0.01 % 8-18 DROP INTO Health ophthalmic 00:00: EACH EYE solution 00 ONCE DAILY AT BEDTIME [place] 2020-0 Yes INSTILL 1 UT 0.01 % 8-18 DROP INTO Health ophthalmic 00:00: EACH EYE solution 00 ONCE DAILY AT BEDTIME [place] 2020-0 Yes INSTILL 1 UT 0.01 % 8-18 DROP INTO Health ophthalmic 00:00: EACH EYE solution 00 ONCE DAILY AT BEDTIME [place] 2020-0 Yes INSTILL 1 UT 0.01 % 8-18 DROP INTO Health ophthalmic 00:00: EACH EYE solution 00 ONCE DAILY AT BEDTIME [place] 2020-0 Yes INSTILL 1 UT 0.01 % 8-18 DROP INTO Health ophthalmic 00:00: EACH EYE solution 00 ONCE DAILY AT BEDTIME [place] 2020-0 Yes INSTILL 1 UT 0.01 % 8-18 DROP INTO Health ophthalmic 00:00: EACH EYE solution 00 ONCE DAILY AT BEDTIME [place] 2020-0 Yes INSTILL 1 UT 0.01 % 8-18 DROP INTO Health ophthalmic 00:00: EACH EYE solution 00 ONCE DAILY AT BEDTIME [place] 2020-0 Yes INSTILL 1 UT 0.01 % 8-18 DROP INTO Health ophthalmic 00:00: EACH EYE solution 00 ONCE DAILY AT BEDTIME [place] 2020-0 Yes INSTILL 1 UT 0.01 % 8-18 DROP INTO Health ophthalmic 00:00: EACH EYE solution 00 ONCE DAILY AT BEDTIME [place] 2020-0 Yes INSTILL 1 UT 0.01 % 8-18 DROP INTO Health ophthalmic 00:00: EACH EYE solution 00 ONCE DAILY AT BEDTIME [place] 2020-0 Yes INSTILL 1 UT 0.01 % 8-18 DROP INTO Health ophthalmic 00:00: EACH EYE solution 00 ONCE DAILY AT BEDTIME [place] 2020-0 Yes INSTILL 1 UT 0.01 % 8-18 DROP INTO Health ophthalmic 00:00: EACH EYE solution 00 ONCE DAILY AT BEDTIME [place] 2020-0 Yes INSTILL 1 UT 0.01 % 8-18 DROP INTO Health ophthalmic 00:00: EACH EYE solution 00 ONCE DAILY AT BEDTIME [place] 2020-0 Yes INSTILL 1 UT 0.01 % 8-18 DROP INTO Health ophthalmic 00:00: EACH EYE solution 00 ONCE DAILY AT BEDTIME [place] 2020-0 Yes INSTILL 1 UT 0.01 % 8-18 DROP INTO Health ophthalmic 00:00: EACH EYE solution 00 ONCE DAILY AT BEDTIME [place] 2020-0 Yes INSTILL 1 UT 0.01 % 8-18 DROP INTO Health ophthalmic 00:00: EACH EYE solution 00 ONCE DAILY AT BEDTIME [place] 2020-0 Yes INSTILL 1 UT 0.01 % 8-18 DROP INTO Health ophthalmic 00:00: EACH EYE solution 00 ONCE DAILY AT BEDTIME [place] 2020-0 Yes INSTILL 1 UT 0.01 % 8-18 DROP INTO Health ophthalmic 00:00: EACH EYE solution 00 ONCE DAILY AT BEDTIME [place] 2020-0 Yes INSTILL 1 UT 0.01 % 8-18 DROP INTO Health ophthalmic 00:00: EACH EYE solution 00 ONCE DAILY AT BEDTIME [place] 2020-0 Yes INSTILL 1 UT 0.01 % 8-18 DROP INTO Health ophthalmic 00:00: EACH EYE solution 00 ONCE DAILY AT BEDTIME [place] 2020-0 Yes INSTILL 1 UT 0.01 % 8-18 DROP INTO Health ophthalmic 00:00: EACH EYE solution 00 ONCE DAILY AT BEDTIME [place] 2020-0 Yes INSTILL 1 UT 0.01 % 8-18 DROP INTO Health ophthalmic 00:00: EACH EYE solution 00 ONCE DAILY AT BEDTIME [place] 2020-0 Yes INSTILL 1 UT 0.01 % 8-18 DROP INTO Health ophthalmic 00:00: EACH EYE solution 00 ONCE DAILY AT BEDTIME [place] 2020-0 Yes INSTILL 1 UT 0.01 % 8-18 DROP INTO Health ophthalmic 00:00: EACH EYE solution 00 ONCE DAILY AT BEDTIME [place] 2020-0 Yes INSTILL 1 UT 0.01 % 8-18 DROP INTO Health ophthalmic 00:00: EACH EYE solution 00 ONCE DAILY AT BEDTIME [place] 2020-0 Yes INSTILL 1 UT 0.01 % 8-18 DROP INTO Health ophthalmic 00:00: EACH EYE solution 00 ONCE DAILY AT BEDTIME [place] 2020-0 Yes INSTILL 1 UT 0.01 % 8-18 DROP INTO Health ophthalmic 00:00: EACH EYE solution 00 ONCE DAILY AT BEDTIME [place] 2020-0 Yes INSTILL 1 UT 0.01 % 8-18 DROP INTO Health ophthalmic 00:00: EACH EYE solution 00 ONCE DAILY AT BEDTIME [place] 2020-0 Yes INSTILL 1 UT 0.01 % 8-18 DROP INTO Health ophthalmic 00:00: EACH EYE solution 00 ONCE DAILY AT BEDTIME Omeprazole, 2020-0 Yes Univer s Bulk, 100 % 2-19 ity of Powd 15:44: [place] [facility] fexofenadin 2020-0 Yes 180mg Take 180 U nivers e (MAHSA 2-19 mg by ity of ALLERGY) 15:44: mouth [place] 180 mg 58 daily. Medical tablet Branch MULTIVITAMI 2020-0 Yes 1{tbl} Take 1 Un jennifer NS WITH 2-19 tablet by ity of FLUORIDE 15:44: mouth [place] (MULTI 58 daily. Medical BARTOLOME-BETS-F Branch LUORIDE ORAL) VITAMIN 2020-0 Yes Univers E,DL-ALPHA 2-19 ity of TOCOPHEROL, 15:44: [place] (VITAMIN E, 60 Medical [facility] Branch ASCORBIC 2020-0 Yes Take by Univer s ACID/VITAMI 2-19 mouth. ity of N E 15:44: [place] (VITAMIN C 60 Medical & E Branch COMBINATION ORAL) NAPROXEN 2020-0 Yes Take by Univer s SODIUM 2-19 mouth. ity of (ALEVE 15:44: [place] ORAL) 58 Medical Branch ascorbic 2020-0 Yes 500mg Take 500 Univ ers acid, 2-19 mg by ity of vitamin C, 15:44: mouth [place] (VITAMIN C) 58 daily. Medica l 500 mg Branch tablet vitamin e 2020-0 Yes 400U Take 400 Univ ers 400 unit 2-19 Units by ity of capsule 15:44: mouth [place] 58 daily. Medical Branch omeprazole 2020-0 Yes 40mg Take 40 mg U nivers 40 mg 2-19 by mouth ity of capsule 15:44: daily. [place] [address] Medical Branch pravastatin 2020-0 Yes 10mg Take 10 mg Univers (PRAVACHOL) 2-19 by mouth ity of 10 mg 15:44: at [place] tablet 58 bedtime. Medical Branch Omeprazole, 2020-0 Yes Univer s Bulk, 100 % 2-19 ity of Powd 15:44: [place] [address] Medical Branch fexofenadin 2020-0 Yes 180mg Take 180 U nivers e (MAHSA 2-19 mg by ity of ALLERGY) 15:44: mouth [place] 180 mg 58 daily. Medical tablet Branch MULTIVITAMI 2020-0 Yes 1{tbl} Take 1 Un jennifer NS WITH 2-19 tablet by ity of FLUORIDE 15:44: mouth [place] (MULTI 58 daily. Medical BARTOLOME-BETS-F Branch LUORIDE ORAL) VITAMIN 2020-0 Yes Univers E,DL-ALPHA 2-19 ity of TOCOPHEROL, 15:44: [place] (VITAMIN E, 60 Medical BULK, [facility]) Branch ASCORBIC 2020-0 Yes Take by Univer s ACID/VITAMI 2-19 mouth. ity of N E 15:44: [place] (VITAMIN C 58 Medical & E Branch COMBINATION ORAL) NAPROXEN 2020-0 Yes Take by Univer s SODIUM 2-19 mouth. ity of (ALEVE 15:44: [place] ORAL) 58 Medical Branch ascorbic 2020-0 Yes 500mg Take 500 Univ ers acid, 2-19 mg by ity of vitamin C, 15:44: mouth [place] (VITAMIN C) 58 daily. Medica l 500 mg Branch tablet vitamin e 2020-0 Yes 400U Take 400 Univ ers 400 unit 2-19 Units by ity of capsule 15:44: mouth [place] 58 daily. Medical Branch omeprazole 2020-0 Yes 40mg Take 40 mg U nivers 40 mg 2-19 by mouth ity of capsule 15:44: daily. [place] [id number] Medical Branch pravastatin 2020-0 Yes 10mg Take 10 mg Univers (PRAVACHOL) 2-19 by mouth ity of 10 mg 15:44: at [place] tablet 58 bedtime. Medical Branch Omeprazole, 2020-0 Yes Univer s Bulk, 100 % 2-19 ity of Powd 15:44: [place] [id number] Medical Branch fexofenadin 2020-0 Yes 180mg Take 180 U nivers e (MAHSA 2-19 mg by ity of ALLERGY) 15:44: mouth [place] 180 mg 58 daily. Medical tablet Branch MULTIVITAMI 2020-0 Yes 1{tbl} Take 1 Un jennifer NS WITH 2-19 tablet by ity of FLUORIDE 15:44: mouth [place] (MULTI 58 daily. Medical BARTOLOME-BETS-F Branch LUORIDE ORAL) VITAMIN 2020-0 Yes Univers E,DL-ALPHA 2-19 ity of TOCOPHEROL, 15:44: [place] (VITAMIN E, 58 Medical BULK, MISC) Branch ASCORBIC 2020-0 Yes Take by Univer s ACID/VITAMI 2-19 mouth. ity of N E 15:44: [place] (VITAMIN C 58 Medical & E Branch COMBINATION ORAL) NAPROXEN 2020-0 Yes Take by Univer s SODIUM 2-19 mouth. ity of (ALEVE 15:44: [place] ORAL) 58 Medical Branch ascorbic 2020-0 Yes 500mg Take 500 Univ ers acid, 2-19 mg by ity of vitamin C, 15:44: mouth [place] (VITAMIN C) 58 daily. Medica l 500 mg Branch tablet vitamin e 2020-0 Yes 400U Take 400 Univ ers 400 unit 2- Units by ity of capsule 15:44: mouth [place] 58 daily. Medical Branch omeprazole 2019-0 Yes 40mg Take 40 mg U nivers 40 mg - by mouth ity of capsule 15:44: daily. [place] 58 Medical Branch pravastatin 2020-0 Yes 10mg Take 10 mg Univers (PRAVACHOL) 09-21 by mouth ity of 10 mg 15:44: at [place] tablet 58 bedtime. Medical Branch propofol IV 0 2020- No Intravenou Univers infusion 09-21- s, ONCE ity of 14:59: 14:27 INTRA [place] 00 :50 PROCEDURE, Medical Starting Branch Thu09/21/19 at 0859, Until Thu09/23/19 at 0827, Routine, Intra-op propofol IV 2019-0 2020- No Intravenou Univers infusion 09-21- s, ONCE ity of 14:59: 14:27 INTRA [place] 00 :50 PROCEDURE, Medical Starting Branch Thu09/21/19 at 0859, Until Thu09/23/19 at 0827, Routine, Intra-op water for 2019-0 Yes PRN, Univers irrigation 09-21 Starting ity o f irrigation 14:35: Wed [place] solution 00 09/21/19 at Medic al 0835, Branch Until Discontinu ed, Routine, Intra-op simethicone 2019-0 Yes PRN, Univer s (GAS RELIEF 09-21 Starting ity of (SIMETHICON 14:35: Wed [place] E)) 40 00 09/21/19 at Medical mg/0.6 mL 0835, Branch drops Until Discontinu ed, Routine, Intra-op lactated 2020- No 1000mL at 20 Unive rs ringers IV 09-21- mL/hr, ity of infusion 13:30: 13:31 1,000 mL, Cas as 1,000 mL 00 :00 IV Medical Infusion, Branch ONCE, 1 dose, Thu09/21/19 at 0730, Routine, DSU Pre-op diclofenac 2017-0 Yes 75mg Take 1 Unive rs 75 mg EC 5-23 tablet by ity of tablet 00:00: mouth 2 [place] 00 (two) Medical times Branch daily with meals. diclofenac 2018-0 Yes 75mg Take 1 Unive rs 75 mg EC 5-23 tablet by ity of tablet 00:00: mouth 2 (two) Medical times Branch daily with meals. diclofenac 2018-0 Yes 75mg Take 1 Unive rs 75 mg EC 5-23 tablet by ity of tablet 00:00: mouth 2 (two) Medical times Branch daily with meals. diclofenac 2018-0 Yes 75mg Take 1 Unive rs 75 mg EC 3-21 tablet by ity of tablet 00:00: mouth 2 (two) Medical times Branch daily with meals. diclofenac 2018-0 Yes 75mg Take 1 Unive rs 75 mg EC 3-21 tablet by ity of tablet 00:00: mouth 2 (two) Medical times Branch daily with meals. diclofenac 2018-0 Yes 75mg Take 1 Unive rs 75 mg EC 3-21 tablet by ity of tablet 00:00: mouth 2 (two) Medical times Branch daily with meals. diclofenac 2018-0 Yes 75mg Take 1 Unive rs 75 mg EC 1-05 tablet by ity of tablet 00:00: mouth 2 (two) Medical times Branch daily with meals. diclofenac 2018-0 Yes 75mg Take 1 Unive rs 75 mg EC 1-05 tablet by ity of tablet 00:00: mouth 2 (two) Medical times Branch daily with meals. diclofenac 2018-0 Yes 75mg Take 1 Unive rs 75 mg EC 1-05 tablet by ity of tablet 00:00: mouth 2 (two) Medical times Branch daily with meals. hydrochloro 2016-0 Yes Univer s thiazide 3-10 ity of (ESIDRIX) 00:00: [place] 12.5 mg 00 Medical capsule Branch hydrochloro 2016-0 Yes Univer s thiazide 3-10 ity of (ESIDRIX) 00:00: [place] 12.5 mg 00 Medical capsule Branch hydrochloro 2016-0 Yes Univer s thiazide 3-10 ity of (ESIDRIX) 00:00: [place] 12.5 mg 00 Medical capsule Branch potassium 2016-0 Yes 1080mg Take 1,080 Univers citrate 1-08 mg by ity of (UROCIT-K) 00:00: [place] 10 mEq 00 (two) Medical (1,080 mg) times Branch SR tablet daily. potassium 2016-0 Yes 1080mg Take 1,080 Univers citrate 1-08 mg by ity of (UROCIT-K) 00:00: mouth [place] 10 mEq 00 (two) Medical (1,080 mg) times Branch SR tablet daily. potassium 2016-0 Yes 1080mg Take 1,080 Univers citrate 1-08 mg by ity of (UROCIT-K) 00:00: [place] 10 mEq 00 (two) Medical (1,080 mg) times Branch SR tablet daily. Immunizations Ordered Immunization Filled Immunization Date Status Commen ts Source Name Name Covid-19 Vaccine 2020-09-[address] [facility] Mrna (Pf) 00:00:00 Medical [place] ([employer]) Covid-19 Vaccine 2020-09-[address] [facility] Mrna (Pf) 00:00:00 [facility] ([employer]) Covid-19 Vaccine 2020-09-[address] [facility] Mrna (Pf) 00:00:00 [facility] ([employer]) Covid-19 Vaccine 2020-09-[address] [facility] MRNA (PF) 12yr+ 00:00:00 Medical C enter (Pfizer/BioNTech)(IM M601) Covid-19 Vaccine 2020-09-[address] [facility] MRNA (PF) 12yr+ 00:00:00 Medical C enter (Pfizer/BioNTech)(IM M601) Covid-19 Vaccine 2020-09-[address] [facility] MRNA (PF) 12yr+ 00:00:00 Medical C enter (Pfizer/BioNTech)(IM M601) Covid-19 Vaccine 2020-09-[address] [facility] MRNA (PF) 12yr+ 00:00:00 Medical C enter (Pfizer/BioNTech)(IM M601) Covid-19 Vaccine 2020-08-[address] [facility] (Pf) [facility]00 [facility] (Pf[employer]) Covid-19 Vaccine 2020-08-[address] [facility] Mrna (Pf) 00:00:00 Medical [place] ([employer]) Covid-19 Vaccine 2020-08-[address] [facility] (Pf) 00:00:00 [facility] ([employer]) Covid-19 Vaccine 2020-08-[address] [facility] MRNA (PF) 12yr+ 00:00:00 Medical C enter (Pfizer/BioNTech)(IM M601) Covid-19 Vaccine 2020-08-[address] [facility] MRNA (PF) 12yr+ 00:00:00 Medical C enter (Pfizer/BioNTech)(IM M601) Covid-19 Vaccine 2020-08-[address] [facility] MRNA (PF) 12yr+ 00:00:00 Medical C enter (Pfizer/BioNTech)(IM M601) Covid-19 Vaccine 2020-08-[address] [facility] MRNA (PF) 12yr+ 00:00:00 Medical C enter (Pfizer/BioNTech)(IM M601) Vital Signs Vital Name Observation Time Observation Value Comments Source Body height 2022-11-27 18:53:00 [facility]3 [facility] weight 2022-11-27 18:53:00 [facility]173 [facility] BMI 2022-11-27 18:53:00 28.03 kg[facility]m2 [facility] Body height 2022-09-05 15:06:00 180.4 [facility] weight 2022-09-05 15:06:00 [facility]173 [facility] BMI 2022-09-05 15:06:00 28.01 kg/m2 [facility] Body height 2022-08-28 20:23:00 180.3 [facility] weight 2022-08-28 20:23:00 91.354 [facility] BMI 2022-08-28 20:23:00 28.09 kg[facility]m2 [facility] Body height 2022-03-17 15:03:00 180.3 [facility] weight 2022-03-17 15:03:00 85[facility]276 [facility] BMI 2022-03-17 15:03:00 26.22 kg[facility]m2 [facility] Body height 2020-12-26 19:10:00 180.3 [facility] Body weight 2020-12-26 19:10:00 83.915 [facility] BMI 2020-12-26 19:10:00 25.80 kg[facility]m2 [facility] Systolic blood 2019-09-21 15:03:00 124 mm[Hg] Univer sity of pressure [facility] Diastolic blood 2019-09-21 15:03:00 78 mm[Hg] Unive rsity of pressure [facility] Heart rate 2019-09-21 15:02:00 58 /min [facility] Body temperature 2019-09-21 15:02:00 36.72 [facility] 2019-09-21 15:02:00 18 /min [facility] Oxygen saturation in 2019-09-21 15:02:00 95 /min [facility] blood by [facility] Pulse oximetry [place] Body height 2019-09-19 21:00:00 180.3 cm [facility] Body weight 2019-09-19 21:00:00 89.812 kg [facility] BMI 2019-09-19 21:00:00 27.62 kg/m2 [facility] Procedures Procedure Date / Time Performing Clinician Source Performed ME ARTHROCENTESIS 2021-01-15 14:51:31 Herrera [place] ASPIR&/INJ MAJOR JT/BURSA W/US SHOULDER WO CONTRAST MRI 2021-01-04 [facility]:38[facility] WO CONTRAST MRI 2021-01-04 22:38:55 Siva Hayden [facility] ME ARTHROCENTESIS 2020-12-26 19:51:05 Herrera Hayden [place] ASPIR&/INJ MAJOR JT/BURSA W/O US EGD (ENDO) 2019-09-21 14:18:32 Nael Collier [facility] EKG-12 LEAD 2019-09-21 13:36:25 Mickey Chase [facility] Plan of Care Planned Activity Planned Date Details Comments Source Future Scheduled 2023-04-03 Influenza Vaccine (#1) [facility] 00:00:00 [code = Influenza Medical Ce nter Vaccine (#1)] Future Scheduled 2022-08-[address] [facility] 00:00:00 (12+) [code = Medical Center DEPRESSION SCREENING (12+)] Future Scheduled 2022-08-03 FALLS RISK SCREENING [facility] 00:00:00 [code = FALLS RISK Medical C enter SCREENING] Future Scheduled 2022-08-[address] [facility] 00:00:00 (12+) [code = Medical Center DEPRESSION SCREENING (12+)] Future Scheduled 2022-08-03 FALLS RISK SCREENING [facility] 00:00:00 [code = FALLS RISK Medical C enter SCREENING] Future Scheduled 2022-08-[address] [facility] 00:00:00 (12+) [code = Medical Center DEPRESSION SCREENING (12+)] Future Scheduled 2022-08-03 FALLS RISK SCREENING [facility] 00:00:00 [code = FALLS RISK Medical C enter SCREENING] Future Scheduled 2022-08-[address] [facility] 00:00:00 (12+) [code = Medical Center DEPRESSION SCREENING (12+)] Future Scheduled 2022-08-03 FALLS RISK SCREENING [facility] 00:00:00 [code = FALLS RISK Medical C enter SCREENING] Future Scheduled 2022-04-03 INFLUENZA VACCINE (#1) [facility] 00:00:00 [code = INFLUENZA Medical Ce nter VACCINE (#1)] Future Scheduled 2022-04-03 INFLUENZA VACCINE (#1) [facility] 00:00:00 [code = INFLUENZA Medical Ce nter VACCINE (#1)] Future Scheduled 2022-04-03 INFLUENZA VACCINE (#1) [facility] 00:00:00 [code = INFLUENZA Medical Ce nter VACCINE (#1)] Future Scheduled 2021-02-23 COVID-19 VACCINE (3 - [facility]00 Booster for Pfizer Medical C enter series) [code = COVID-19 VACCINE (3 - Booster for Pfizer series)] Future Scheduled 2021-02-23 COVID-19 VACCINE (3 - [facility] 00:00:00 Booster for Pfizer Medical C enter series) [code = COVID-19 VACCINE (3 - Booster for Pfizer series)] Future Scheduled 2021-02-23 COVID-19 VACCINE (3 - [facility] 00:00:00 Booster for Pfizer Medical C enter series) [code = COVID-19 VACCINE (3 - Booster for Pfizer series)] Future Scheduled 2020-11-21 COVID-19 VACCINE (3 - [facility] 00:00:00 Booster for Pfizer Medical C enter series) [code = COVID-19 VACCINE (3 - Booster for Pfizer series)] Future Scheduled 2020-08-[address] [facility] 00:00:00 (12+) [code = Medical Center DEPRESSION SCREENING (12+)] Future Scheduled 2020-08-[address] [facility] 00:00:00 (12+) [code = Medical Center DEPRESSION SCREENING (12+)] Future Scheduled 2020-08-[address] [facility] 00:00:00 (12+) [code = Medical Center DEPRESSION SCREENING (12+)] Future Scheduled 2020-04-03 INFLUENZA VACCINE (#1) [facility] 00:00:00 [code = INFLUENZA Medical Ce nter VACCINE (#1)] Future Scheduled 2020-04-03 INFLUENZA VACCINE (#1) [facility] 00:00:00 [code = INFLUENZA Medical Ce nter VACCINE (#1)] Future Scheduled 2020-04-03 INFLUENZA VACCINE (#1) [facility] 00:00:00 [code = INFLUENZA Medical Ce nter VACCINE (#1)] Future Scheduled 2017 PNEUMOCOCCAL 65+ YRS ([address] [facility] 00:00:00 of 1 - [id number] Medica l Center PCV13) [code = PNEUMOCOCCAL 65+ YRS (1 of 1 - [id number] PCV13)] Future Scheduled 2017 PNEUMOCOCCAL 65+ YRS ([address] [facility] 00:00:00 of 1 - [id number] Medica l Center PCV13) [code = PNEUMOCOCCAL 65+ YRS (1 of 1 - [id number] PCV13)] Future Scheduled 2017 PNEUMOCOCCAL 65+ YRS ([address] [facility] 00:00:00 of 1 - [id number] Medica l Center PCV13) [code = PNEUMOCOCCAL 65+ YRS (1 of 1 - [id number]_[id number] PCV13)] Future Scheduled 2017 PNEUMOCOCCAL 65+ YRS ([address] [facility] 00:00:00 - PCV) [code = Medical Cente r PNEUMOCOCCAL 65+ YRS (1 - PCV)] Future Scheduled 2017 PNEUMOCOCCAL 65+ YRS ([address] [facility] 00:00:00 - PCV) [code = Medical Cente r PNEUMOCOCCAL 65+ YRS (1 - PCV)] Future Scheduled 2017 PNEUMOCOCCAL 65+ YRS ([address] [facility] 00:00:00 - PCV) [code = Medical Cente r PNEUMOCOCCAL 65+ YRS (1 - PCV)] Future Scheduled 2017 PNEUMOCOCCAL 65+ YRS ([address] [facility] 00:00:00 - PCV) [code = Medical Cente r PNEUMOCOCCAL 65+ YRS (1 - PCV)] Future Scheduled 2002 SHINGLES VACCINES ([address] [facility] 00:00:00 2) [code = SHINGLES Medical Center VACCINES (1 of 2)] Future Scheduled 2002 SHINGLES VACCINES ([address] [facility] 00:00:00 2) [code = SHINGLES Medical Center VACCINES (1 of 2)] Future Scheduled 2002 SHINGLES VACCINES ([address] [facility] 00:00:00 2) [code = SHINGLES Medical Center VACCINES (1 of 2)] Future Scheduled 2002 SHINGLES VACCINES ([address] [facility] 00:00:00 2) [code = SHINGLES Medical Center VACCINES (1 of 2)] Future Scheduled 2002 SHINGLES VACCINES ([address] [facility] 00:00:00 2) [code = SHINGLES Medical Center VACCINES (1 of 2)] Future Scheduled 2002 SHINGLES VACCINES ([address] [facility] 00:00:00 2) [code = SHINGLES Medical Center VACCINES (1 of 2)] Future Scheduled 2002 SHINGLES VACCINES ([address] [facility] 00:00:00 2) [code = SHINGLES Medical Center VACCINES (1 of 2)] Future Scheduled 1971 DTAP/TDAP/TD VACCINES [facility] 00:00:00 (1 - Tdap) [code = Medical C enter DTAP/TDAP/TD VACCINES (1 - Tdap)] Future Scheduled 1971 DTAP/TDAP/TD VACCINES [facility] 00:00:00 (1 - Tdap) [code = Medical C enter DTAP/TDAP/TD VACCINES (1 - Tdap)] Future Scheduled 1971 DTAP/TDAP/TD VACCINES [facility] 00:00:00 (1 - Tdap) [code = Medical C enter DTAP/TDAP/TD VACCINES (1 - Tdap)] Future Scheduled 1971 DTAP/TDAP/TD VACCINES [facility] 00:00:00 (1 - Tdap) [code = Medical C enter DTAP/TDAP/TD VACCINES (1 - Tdap)] Future Scheduled 1971 DTAP/TDAP/TD VACCINES [facility] 00:00:00 (1 - Tdap) [code = Medical C enter DTAP/TDAP/TD VACCINES (1 - Tdap)] Future Scheduled 1971 DTAP/TDAP/TD VACCINES [facility] 00:00:00 (1 - Tdap) [code = Medical C enter DTAP/TDAP/TD VACCINES (1 - Tdap)] Future Scheduled 1971 DTAP/TDAP/TD VACCINES [facility] 00:00:00 (1 - Tdap) [code = Medical C enter DTAP/TDAP/TD VACCINES (1 - Tdap)] Future Scheduled 1970 HEPATITIS C SCREENING [facility] 00:00:00 [code = HEPATITIS C Medical Center SCREENING] Future Scheduled 1970 HEPATITIS C [facility]CRE[facility]ING [facility] 00:00:00 [code = HEPATITIS C Medical Center SCREENING] Future Scheduled 1970 HEPATITIS C [facility]CRE[facility]ING [facility] 00:00:00 [code = HEPATITIS C Medical Center SCREENING] Future Scheduled 1970 HEPATITIS C [facility]CRE[facility]ING [facility] 00:00:00 [code = HEPATITIS C Medical Center SCREENING] Future Scheduled 1970 HEPATITIS C [facility]CRE[facility]ING [facility] 00:00:00 [code = HEPATITIS C Medical Center SCREENING] Future Scheduled 1970 HEPATITIS C [facility]CRE[facility]ING [facility] 00:00:00 [code = HEPATITIS C Medical Center SCREENING] Future Scheduled 1970 HEPATITIS C [facility]CRE[facility]ING [facility] 00:00:00 [code = HEPATITIS C Medical Center SCREENING] Future Scheduled [address] [facility] 00:00:00 Counseling and Medical Cente r Screening (12+) [code = Tobacco Cessation Counseling and Screening (12+)] Future Scheduled [address] [facility] 00:00:00 Counseling and Medical Cente r Screening (12+) [code = Tobacco Cessation Counseling and Screening (12+)] Future Scheduled [address] [facility] 00:00:00 Counseling and Medical Cente r Screening (12+) [code = Tobacco Cessation Counseling and Screening (12+)] Future Scheduled [address] [facility] 00:00:00 Counseling and Medical Cente r Screening (12+) [code = Tobacco Cessation Counseling and Screening (12+)] Future Scheduled 1952 Screening for malignant [facility] 00:00:00 neoplasm of colon Medical Ce nter (procedure) [code = 505463631] Future Scheduled 1952 Screening for malignant [facility] 00:00:00 neoplasm of colon Medical Ce nter (procedure) [code = 310581921] Future Scheduled 1952 CT Colonography (combo) [facility] 00:00:00 [code = CT Colonography [facility] Center (combo)] Future Scheduled 1952 Screening for malignant [facility] 00:00:00 neoplasm of colon Medical Ce nter (procedure) [code = 293193480] Future Scheduled 1952 Screening for malignant [facility] 00:00:00 neoplasm of colon Medical Ce nter (procedure) [code = 127398314] Future Scheduled 1952 Screening for malignant [facility] 00:00:00 neoplasm of colon Medical Ce nter (procedure) [code = 111376526] Future Scheduled 1952 Screening for malignant [facility] 00:00:00 neoplasm of colon Medical Ce nter (procedure) [code = 587977579] Future Scheduled 1952 Sigmoidoscopy [code = [facility] Sigmoidoscopy] Medical Cente r Future Scheduled 1952 CT Colonography (combo) [facility] 00:00:00 [code = CT Colonography [facility] Center (combo)] Future Scheduled 1952 Screening for malignant [facility] 00:00:00 neoplasm of colon Medical Ce nter (procedure) [code = 811327575] Future Scheduled 1952 Screening for malignant [facility] 00:00:00 neoplasm of colon Medical Ce nter (procedure) [code = 787921536] Future Scheduled 1952 Screening for malignant [facility] 00:00:00 neoplasm of colon Medical Ce nter (procedure) [code = 414185678] Future Scheduled 1952 Screening for malignant [facility] 00:00:00 neoplasm of colon Medical Ce nter (procedure) [code = 333486317] Future Scheduled 1952 Sigmoidoscopy [code = [facility] 00:[facility] Sigmoidoscopy] Medical Cente r Future Scheduled 1952 Screening for malignant [facility] 00:00:00 neoplasm of colon Medical Ce nter (procedure) [code = 495195324] Future Scheduled 1952 CT Colonography (combo) [facility] 00:00:00 [code = CT Colonography [facility] Center (combo)] Future Scheduled 1952 Screening for malignant [facility] 00:00:00 neoplasm of colon Medical Ce nter (procedure) [code = 592515851] Future Scheduled 1952 Screening for malignant [facility] 00:00:00 neoplasm of colon Medical Ce nter (procedure) [code = 078784334] Future Scheduled 1952 Screening for malignant [facility] 00:00:00 neoplasm of colon Medical Ce nter (procedure) [code = 393866144] Future Scheduled 1952 Screening for malignant [facility] 00:00:00 neoplasm of colon Medical Ce nter (procedure) [code = 667526392] Future Scheduled 1952 Sigmoidoscopy [code = [facility] 00:00:[facility] Sigmoidoscopy] Medical Cente r Future Scheduled 1952 CT Colonography (combo) [facility] 00:00:00 [code = CT Colonography Medi nida Center (combo)] Future Scheduled 1952 Screening for malignant [facility] 00:00:00 neoplasm of colon Medical Ce nter (procedure) [code = 995936674] Future Scheduled 1952 Screening for malignant [facility] 00:00:00 neoplasm of colon Medical Ce nter (procedure) [code = 335774995] Future Scheduled 1952 Screening for malignant [facility] 00:00:00 neoplasm of colon Medical Ce nter (procedure) [code = 132230575] Future Scheduled 1952 Screening for malignant [facility] 00:00:00 neoplasm of colon Medical Ce nter (procedure) [code = 236473139] Future Scheduled 1952 Sigmoidoscopy [code = [facility] 00:[facility] Sigmoidoscopy] Medical Cente r Encounters Start End Encounter Admission Attending Care Care Encounter Source Date/Time Date/Time Type Type Clinicians Facility Department ID 2022-10-31 Outpatient [facility] [id number] [place] 17:14:23 [id number] [facility] 2022-09-05 Outpatient [facility] [id number] [place] 05:39:54 [id number] [facility] 2022-09-01 Outpatient [facility] [id number] [place] 14:53:27 [id number] [facility] 2022-08-27 Outpatient [facility] [id number] [place] 08:49:58 [id number] [facility] 2022-08-23 Outpatient [facility] [id number] [place] 21:08:12 [id number] 2022-08-22 Outpatient [facility] [id number] [place] 15:04:24 [id number] [facility] 2022-08-11 Outpatient [facility] [id number] [place] 09:52:03 [id number] [facility] 2022-05-19 Outpatient [facility] [id number] [place] 08:39:44 [id number] [facility] 2021-08-30 Outpatient JUNAID MAST [facility] [id number] [place] 01:03:41 Health 2021-08-15 Outpatient JUNAID MAST [facility] [id number] [place] 13:53:24 Health 2021-07-04 Outpatient JUNAID MAST [facility] [id number] [place] 14:40:46 Health 2021-06-13 Outpatient JUNAID MAST [facility] [id number] [place] 14:31:05 Health 2021-05-22 Outpatient [facility] [id number] [place] 11:48:41 Health 2021-01-15 Outpatient COLIN [facility] [id number] [place] 10:08:52 [facility] 2023-01-16 2023-01-16 Outpatient AMARA [facility] [id number] [place] 09:30:00 09:30:00 [facility] 2022-11-27 2022-11-27 Office Laureano [facility] [id number] [place] 14:00:00 14:27:07 Visit Ben [place] [id number] [facility]alt MEDICAL [id number] [id number] 2022-09-19 2022-09-19 Office Radha Hall [facility] [id number] [place] 09:30:00 09:50:22 Visit GLADYS [id number] H ealth MEDICAL [id number] [id number] 2022-09-05 2022-09-05 Office Radha Hall [facility] [id number] [place] 09:00:00 09:43:47 [facility] [id number] H ealth MEDICAL [id number] [id number] 2022-09-04 2022-09-04 Outpatient LAUREANO [facility] [id number] [place] 10:00:00 10:00:00 [facility] 2022-08-28 2022-08-28 Outpatient [facility] [id number] [place] 13:30:00 14:24:41 Health 2022-08-28 2022-08-28 Office Laureano [facility] [id number] [place] 13:30:00 14:17:19 Visit Ben [place] [id number] H ealth MEDICAL [id number] [id number] 2022-08-19 2022-08-19 Office Colin [facility] [id number] [place] 13:00:00 13:47:54 Visit GLADYS Echeverria [id number] H [facility] MEDICAL [id number] [id number] 2022-08-11 2022-08-11 Outpatient [facility] [id number] [place] 10:00:00 10:43:35 Health 2022-08-11 2022-08-11 Office Colin [facility] [id number] [place] 10:00:00 10:43:17 Visit GLADYS Echeverria [id number] H [facility] MEDICAL [id number] [id number] 2022-05-20 2022-05-20 Office ArmaniJunaid [facility] [id number] [place] 11:15:00 12:22:49 Visit GLADYS [id number] H [facility] MEDICAL [id number] [id number] 2022-03-17 2022-03-17 Office Colin [facility] [id number] [place] 10:15:00 11:02:41 Visit GLADYS Echeverria [id number] H [facility] MEDICAL [id number] [id number] 2022-03-17 2022-03-17 Outpatient [facility] [id number] [place] 10:15:00 10:39:52 Health 2021-12-10 2021-12-10 Office ArmaniJossyan [facility] [id number] [place] 10:45:00 11:47:03 Visit [facility] [id number] [facility] [id number] [address] 9 [id number] [id number] 2021-10-08 2021-10-08 Office Junaid Mast [facility] [id number] 13 [id number] [place] 11:15:00 13:20:59 Visit [facility] [id number] [facility] MED[facility] [id number] PLA[address] 4 [id number] 2021-08-20 2021-08-20 Office Junaid Mast [facility] [id number] 13 [id number] [place] 11:15:00 12:06:11 Visit HAZELHURST [id number] H [facility] [facility] MEDICAL 9.2.7.2.686 PLAZA 1 [id number] 5 2021-06-13 2021-06-13 Office Junaid Mast [facility] 1.2.840.114 12 [id number] [place] 13:21:46 14:31:16 Visit [place] [id number] H [facility] MEDICAL 9.2.7.2.686 PLAZA 1 [id number] 2021-06-13 2021-06-13 Telephone Юлия Baeza [facility] 1.2.840. 114 [id number] [place] 00:00:00 00:00:00 Юлия Baeza [id number] Health MEDICAL 9.2.7.2.686 PLAZA 3 [id number] 5 2021-06-07 2021-06-07 Office Junaid Mast [facility] 6400 1.2.840.114 1 [id number] [place] 11:47:41 12:48:30 Visit TIANA [id number] Health 9.2.7.2.686 [id number] 5 2021-05-31 2021-05-31 Outpatient JUNAID MAST [facility] 750 [id number] 07:00:00 23:59:00 [facility] 2021-05-31 2021-05-31 EXT [facility] IP System, EXT [facility] 1.2.840.114 1 [id number] [place] 00:00:00 00:00:00 Provider LOCATION [id number] Health Not In 9.2.7.2.686 [id number] 2021-05-31 2021-05-31 EXT [facility] IP System, EXT [facility] 1.2.840.114 1 [id number] [place] 00:00:00 00:00:00 Provider LOCATION [id number] Health Not In 9.2.7.2.686 [id number] 2021-05-31 2021-05-31 Refill Shonna Poe [facility] 1.2.840.114 [id number] [place] 00:00:00 00:00:00 [facility] [id number] Health MEDICAL 9.2.7.2.686 PLAZA 3 [id number] 2021-05-31 2021-05-31 EXT MHH IP System, EXT [facility] 1.2.840.114 1 [id number] [place] 00:00:00 00:00:00 Provider LOCATION [id number] Health Not In 9.2.7.2.686 [id number] 0 2021-05-31 2021-05-31 EXT MHH IP System, EXT [facility] 1.2.840.114 1 [id number] [place] 00:00:00 00:00:00 Provider LOCATION [id number] Health Not In 9.2.7.2.686 [id number] 2021-05-21 2021-05-21 Office Junaid Mast [facility]TP [facility] 1.2.840.114 12 [id number] [place] 09:21:15 12:00:49 Visit [place] [id number] [facility] 9.2.7.2.686 PLAZA 6 [id number] 2021-03-26 2021-03-26 Office Junaid Mast [facility] 1.2.840.114 12 [id number] 10:17:04 11:34:03 Visit [place] [id number] MEDICAL 9.2.7.2.686 PLAZA 6 [id number] 5 2021-03-26 2021-03-26 Office Junaid Mast UTP [facility] 1.2.840.114 12 [id number] [place] 10:17:04 11:34:03 Visit [place] 350.1.13.58 H ealth MEDICAL 9.2.7.2.686 PLAZA 8 [id number] 5 2021-02-28 2021-02-28 Office Colin [facility] 1.2.840.114 [id number] 13:24:45 13:40:54 Visit GLADYS Echeverria 350.1.13.58 Herrera MEDICAL 9.2.7.2.686 PLAZA 0 [id number] 7 2021-02-28 2021-02-28 Office Colin [facility] 1.2.840.114 [id number] [place] 13:24:45 13:40:54 Visit GLADYS Echeverria 350.1.13.58 H [facility] 9.2.7.2.686 PLAZA 3 [id number] 2021-01-15 2021-01-15 Office Colin [facility] 1.2.840.114 [id number] 08:59:52 10:09:11 Visit GLADYS Echeverria [id number] [place] MEDICAL 9.2.7.2.686 PLAZA 5 [id number] 2021-01-15 2021-01-15 Office Colin [facility] 1.2.840.114 [id number] [place] 08:59:52 10:09:11 Visit GLADYS Echeverria 350.1.13.58 H [facility] 9.2.7.2.686 PLAZA 2 [id number] 7 2021-01-07 2021-01-07 Telephone Tammi Johnson [facility] 1.2.840. 114 [id number] [place] 00:00:00 00:00:00 Tammi Johnson [id number] [facility] MEDICAL 9.2.7.2.686 PLAZA 5 [id number] 7 2020-12-26 2020-12-26 Office Colin [facility] 1.2.840.114 [id number] [place] 13:55:34 15:07:23 Visit GLADYS Echeverria 350.1.13.58 H [facility] MEDICAL 9.2.7.2.686 PLAZA 1 [id number] 2020-12-26 2020-12-26 EXT [facility] OP Colin EXT [facility] 1.2.840.114 1 [id number] [place] 00:00:00 00:00:00 Jacki, LOCATION 350.1.13.58 H ealth Herrera 9.2.7.2.686 [id number] 0 2020-12-26 2020-12-26 EXT MHH OP Yasmin-Raji EXT M[facility] 1.2.840.114 1 [id number] [place] 00:00:00 00:00:00 Jacki, LOCATION 350.1.13.58 H ealt Herrera 9.2.7.2.686 [id number] 2020-12-25 2020-12-25 Abstract Colin UTP [facility] 1.2.840.114 [id number] [place] 00:00:00 00:00:00 [facility] [id number] H [facility] 9.2.7.2.686 PLAZA 1 [id number] 2020-09-26 2020-09-26 Immunizati Covid [facility] [id number] [facility] [address] 11:39:31 11:49:31 on [facility], [facility] 2020-09-26 2020-09-26 Outpatient EL SLE SLE [id number] SLE 00:00:00 00:00:00 2020-08-29 2020-08-29 Immunizati Covid [facility] [id number] [facility] 12:36:33 12:46:33 on [facility]man [facility] 2020-08-29 2020-08-29 Outpatient EL SLE SLEH [id number] SLE 00:00:00 00:00:00 2019-12-08 2019-12-08 Outpatient Sarah DODD [facility] [id number] [facility] 10:30:00 10:30:00 OBEY fallon [facility] 2019-09-21 2019-09-21 [facility] 1.2.840.114 7 [id number] [facility] 07:05:00 09:40:00 Eldon Bach 350.1.13.10 [facility] [id number] [facility] [address] 2019-09-21 2019-09-21 Anesthesia Essence Masterson [facility] 1. 2.840.114 [id number] [facility] 08:27:00 08:45:00 O Marielle Hall 350.1.13.10 [place]2.[place] [id number] [facility] [address] [place] 2019-09-21 2019-09-21 [facility] 1. 2.840.114 [id number] 08:27:00 08:45:00 O Marielle Hall 350.1.13.10 [place] 4.2.7.2.686 Surgical [id number] [place] 020 Results Test Description Test Time Test Comments Results Result [facility] e Comments L Inj/Asp: R 2021-01-15 Herrera Echeverria, [facility] subacromial bursa 14:51:31 MD ? ? 01/15/2021 10:04 AML Inj/Asp: R subacromial bursa on 01/15/2021 9:51 AMIndications: painDetails: 22 G needle, ultrasound-guided (Ultrasound guidance for injection and/or aspiration into the knee joint is required due to the anatomically difficult location and depth if only using a blind approach. ?Given the location of the proposed injection and/or aspiration, ultrasound visualization for needle placement is also reasonable and necessary to minimize risk of damaging neurovascular structures and to improve accuracy of the placement of the injectant.) lateral approachMedications: 10 mg triamcinolone acetonide 10 MG/ML; 1 mL lidocaine 1 %; 1 mL bupivacaine 0.25 %Outcome: tolerated well, no immediate complications (A bandaid was applied.) The patient was counseled not to submerge the site for 24 hours, not to perform strenuous activity for the next 5 days, and if she he or she may notice any signs or symptoms consistent with joint infection or allergic reaction to go to a local emergency room. ?The patient was observed for 15 minutes post procedure and was allowed to be discharged from clinic in their usual state of health.Please note images obtained are permanently stored on HIPAA secured servers.Procedure, treatment alternatives, risks and benefits explained, specific risks discussed. Consent was given by the patient (Written consent obtained and scanned in the chart. ?Risks and benefits discussed with patient.). Immediately prior to procedure a time out was called to verify the correct patient, procedure, equipment, field support technician and site/side marked as required. Patient was prepped and draped in the usual sterile fashion (ChloraPrep was used to prep the area. ?Ethyl Chloride used for topical anesthesia. ). L Inj/Asp: R 2021-01-15 [facility] 14:51:31 MD ? ? 01/15/2021 10:04 AML Inj/Asp: R subacromial bursa on 01/15/2021 9:51 AMIndications: painDetails: 22 G needle, ultrasound-guided (Ultrasound guidance for injection and/or aspiration into the knee joint is required due to the anatomically difficult location and depth if only using a blind approach. ?Given the location of the proposed injection and/or aspiration, ultrasound visualization for needle placement is also reasonable and necessary to minimize risk of damaging neurovascular structures and to improve accuracy of the placement of the injectant.) lateral approachMedications: 10 mg triamcinolone acetonide 10 MG/ML; 1 mL lidocaine 1 %; 1 mL bupivacaine 0.25 %Outcome: tolerated well, no immediate complications (A bandaid was applied.) The patient was counseled not to submerge the site for 24 hours, not to perform strenuous activity for the next 5 days, and if she he or she may notice any signs or symptoms consistent with joint infection or allergic reaction to go to a local emergency room. ?The patient was observed for 15 minutes post procedure and was allowed to be discharged from clinic in their usual state of health.Please note images obtained are permanently stored on HIPAA secured servers.Procedure, treatment alternatives, risks and benefits explained, specific risks discussed. Consent was given by the patient (Written consent obtained and scanned in the chart. ?Risks and benefits discussed with patient.). Immediately prior to procedure a time out was called to verify the correct patient, procedure, equipment, field support technician and site/side marked as required. Patient was prepped and draped in the usual sterile fashion (ChloraPrep was used to prep the area. ?Ethyl Chloride used for topical anesthesia. ). L Inj/Asp: L 2020-12-26 Herrera [facility] 19:51:05 MD ? ? 12/26/2020 ?3:00 PML [facility] 12/26/2020 2:51 PMIndications: painDetails: 22 G needle (Posteriorlateral) approachMedications: 10 mg triamcinolone acetonide 10 MG/ML; 1 mL lidocaine 1 %; 1 mL bupivacaine 0.25 %Outcome: tolerated well, no immediate complications (A bandaid was applied.) The patient was counseled not to submerge the site for 24 hours, not to perform strenuous activity for the next 5 days, and if she he or she may notice any signs or symptoms consistent with joint infection or allergic reaction to go to a local emergency room. ?The patient was observed for 15 minutes post procedure and was allowed to be discharged from clinic in their usual state of health.Procedure, treatment alternatives, risks and benefits explained, specific risks discussed. Consent was given by the patient (Written consent obtained and scanned in the chart. ?Risks and benefits discussed with patient.). Immediately prior to procedure a time out was called to verify the correct patient, procedure, equipment, field support technician and site/side marked as required. Patient was prepped and draped in the usual sterile fashion (ChloraPrep was used to prep the area. ?Ethyl Chloride used for topical anesthesia. ). L Inj/Asp: L 2020-12-26 [facility]05 MD ? ? 12/26/2020 ?3:00 PML Inj/Asp: [facility] 12/26/2020 2:51 PMIndications: painDetails: 22 G needle (Posteriorlateral) approachMedications: 10 mg triamcinolone acetonide 10 MG/ML; 1 mL lidocaine 1 %; 1 mL bupivacaine 0.25 %Outcome: tolerated well, no immediate complications (A bandaid was applied.) The patient was counseled not to submerge the site for 24 hours, not to perform strenuous activity for the next 5 days, and if she he or she may notice any signs or symptoms consistent with joint infection or allergic reaction to go to a local emergency room. ?The patient was observed for 15 minutes post procedure and was allowed to be discharged from clinic in their usual state of health.Procedure, treatment alternatives, risks and benefits explained, specific risks discussed. Consent was given by the patient (Written consent obtained and scanned in the chart. ?Risks and benefits discussed with patient.). Immediately prior to procedure a time out was called to verify the correct patient, procedure, equipment, field support technician and site/side marked as required. Patient was prepped and draped in the usual sterile fashion (ChloraPrep was used to prep the area. ?Ethyl Chloride used for topical anesthesia. ).
--- NOTE | 2023-02-07 14:16 | RAD REPORT ---
EXAM DESCRIPTION: CT - Head Brain Wo Cont - 02/07/2023 1:57 pm CLINICAL HISTORY: Head injury status post fall COMPARISON: 2019 TECHNIQUE: Computed axial tomography of the head was obtained. IV contrast was not requested. All CT scans are performed using dose optimization technique as appropriate and may include automated exposure control or mA/KV adjustment according to patient size. FINDINGS: Right frontal scalp hematoma. Very small area of increased density temporal horn right lateral ventricle is not visualized on prior exam The ventricles are normal in caliber No extra-axial fluid collection is noted. Mild low-density areas within periventricular, deep and subcortical white matter likely represent isc hemic changes secondary to small vessel disease. Fluid within the sinuses/ mastoids is not seen. IMPRESSION: Very small area of increased density temporal horn right lateral ventricle probably an a cute bleed Doctor Maza in emergency room notified at 2:11 p.m. February 07, 2023
--- NOTE | 2023-02-07 14:29 | EDPHYS ---
Physician Documentation [facility] Name: Humberto Brar Age: 72 yrs Sex: Male : 1950 Arrival Date: 02/07/2023 Time: 13:44 Bed 4 Private MD: ED Physician Abhinav Maza HPI: 02/07 14:02 This 72 yrs old Male presents to ER via EMS with complaints of fall, head lac. sb4 14:02 Trauma demographics: County: The injury occurred in [place] Location of Injury: The sb4 injury occurred at a store, Date: February 07, 2023. Mechanism of injury: Fall: the patient fell from a standing position. Associated injuries: The patient sustained injury to the head, laceration, of the right catholic. Onset: The symptoms/episode began/occurred just prior to arrival. The patient has not experienced similar symptoms in the past. The patient has been recently seen by a physician: the patient's primary care provider. 72 year old male with hypertension, benign heart murmur, hypothyroidism presents s/p fall. He was at [employer] grabbing 2 briskets and when he stood he tripped and fell onto his head. +LOC, no blood thinners. Historical: - Allergies: 13:47 No Known Allergies; ap3 - Home Meds: 13:47 Hydrochlorothiazide Oral [Active]; potassium citrate monohydrate (bulk) miscellaneous ap3 [Active]; Synthroid Oral [Active]; - PMHx: 13:47 annuerysm; Hypertension; Gastroesophageal reflux disease; Kidney stone; Hypothyroidism; ap3 - PSHx: 13:47 right rotator cuff sx; ap3 - Immunization history:: Client reports receiving the 2nd dose of the Covid vaccine. - Social history:: Smoking status: Patient denies any tobacco usage or history of. ROS: 14:02 Constitutional: Negative for fever, chills, and weight loss, Eyes: Negative for injury, sb4 pain, redness, and discharge, Cardiovascular: Negative for chest pain, palpitations, and edema, Respiratory: Negative for shortness of breath, cough, wheezing, and pleuritic chest pain, Abdomen/GI: Negative for abdominal pain, nausea, vomiting, diarrhea, and constipation, MS/Extremity: Negative for injury and deformity. 14:02 Neuro: Positive for headache, loss of consciousness. Exam: 14:02 Constitutional: This is a well developed, well nourished patient who is awake, alert, sb4 and in no acute distress. Eyes: Extra-ocular motions intact. Periorbital areas with no swelling, redness, or edema. ENT: Mucous membranes moist. Cardiovascular: Regular rate and rhythm with a normal S1 and S2. Respiratory: Lungs have equal breath sounds bilaterally, clear to auscultation and percussion. No rales, rhonchi or wheezes noted. No increased work of breathing, no retractions or nasal flaring. Abdomen/GI: Soft, non-tender, no distension. Back: No spinal tenderness. No costovertebral tenderness. Full range of motion. MS/ Extremity: Pulses equal, no cyanosis. Neurovascular intact. Full, normal range of motion. Neuro: Awake and alert, GCS 15, oriented to person, place, time, and situation. Cranial nerves II-XII grossly intact. Motor strength 5/5 in all extremities. Sensory grossly intact. Cerebellar exam normal. Normal gait. 14:02 Head/face: Noted is a laceration(s), that is superficial, that is linear, 3 cm(s), of the right catholic. 14:02 Skin: injury, skin tear right arm. Vital Signs: 13:46 BP 151 / 93; Pulse 60; Resp 18; Temp 98.4; Pulse Ox 100% on R/A; Weight 90.72 kg; ap3 Height 5 ft. 11 in. ; Pain 1/10; 15:21 BP 147 / 83; Pulse 71; Resp 17; Pulse Ox 100% on R/A; ap3 13:46 Body Mass Index 27.89 (90.72 kg, 180.34 cm) ap3 13:46 Pain Scale: Adult ap3 Laceration: 15:24 Wound Repair of 4cm ( 1.6in ) subcutaneous laceration to right catholic. Linear shaped.. sb4 Distal neuro/vascular/tendon intact. Anesthesia: Local anesthetic administered with 3 mls of 1% lidocaine w/ Epi. Wound prep: Extensive cleansing with hibiclenz by de, Wound explored moderately. Skin closed with 3 4-0 Prolene using simple sutures and sterile technique. Dressed with 4x4's. Patient tolerated well. MDM: 13:45 Patient medically screened. sb4 14:51 Differential diagnosis: closed head injury, C spine fracture, epidural bleed, subdural sb4 bleed, concussion. Data reviewed: vital signs, nurses notes, EMS record, lab test result(s), EKG, radiologic studies, I have discussed the patient's presentation/case with the attending Emergency Department Physician;. Management of patient was discussed with the following: Bible Worker: Neurosurgery at [facility]. Independent interpretation of the following test(s) in the Emergency Department CT Scan: My interpretation is my interpretation of the head CT images- < 5 mm bleed lateral ventricle. Discussion of test interpretation with radiology: I had a discussion with radiology regarding a test interpretation. Dr. Maza discussed findings with radiologist. Care significantly affected by the following chronic conditions: Hypertension. Counseling: I had a detailed discussion with the patient and/or guardian regarding: the historical points, exam findings, and any diagnostic results supporting the discharge/admit diagnosis, radiology results, the need to transfer to another facility, for higher level of care. 02/07 14:13 Order name: Basic Metabolic Panel; Complete Time: 15:27 sb4 02/07 14:13 Order name: CBC with Diff; Complete Time: 15:27 sb4 02/07 14:13 Order name: Type And Screen; Complete Time: 15:31 sb4 02/07 14:22 Order name: Troponin High Sensitivity; Complete Time: 15:27 sb4 02/07 13:46 Order name: Head Brain Wo Cont CT; Complete Time: 14:17 sb4 02/07 14:13 Order name: XRAY Chest (1 view); Complete Time: 14:54 sb4 02/07 14:13 Order name: Labs collected and sent; Complete Time: 14:27 sb4 02/07 14:13 Order name: NPO; Complete Time: 14:14 sb4 02/07 14:22 Order name: EKG - Nurse/Tech; Complete Time: 14:27 sb4 02/07 14:32 Order name: Seizure Precautions; Complete Time: 15:16 sb4 EC:29 Rate is 70 beats/min. Rhythm is regular, Normal Sinus Rhythm. QRS Lawrence is Normal. IA sb4 interval is normal at 176 msec. QRS interval is normal at 94 msec. QT interval is normal at 396 msec. Clinical impression: Normal ECG. Interpreted by me. Reviewed by me. Administered Medications: 14:45 Drug: Keppra IV 1000 mg Route: IV; Rate: calculated rate; Site: right antecubital; hb 15:17 Follow up: IV Status: Completed infusion ap3 Disposition Summary: 02/07/23 14:28 Transfer Ordered Transfer Location: [facility] sb4 Reason: Higher level of care sb4 Condition: Fair sb4 Problem: new sb4 Symptoms: are unchanged sb4 Accepting Physician: Dr. Sarah Howe [facility](02/07/23 16:01) ap3 Diagnosis - traumatic acute bleed of right temporal horn - lateral ventricle sb4 Forms: - Medication Reconciliation Form sb4 - SBAR form sb4 Signatures: Dispatcher [employer] EDGalina Espinoza RN RN Michelle Castellanos RN RN ap3 Deidre Saucedo Sophia, PA-C PAVikram sb4 Corrections: (The following items were deleted from the chart) 14:57 14:28 trauma doc sb4 eb 16:01 14:57 Dr. Sarah Howe [facility] eb ap3
--- NOTE | 2023-02-07 14:29 | ER ---
Nurse's Notes [facility] Name: Humberto Brar Age: 72 yrs Sex: Male : 1950 Arrival Date: 02/07/2023 Time: 13:44 Bed 4 Private MD: Diagnosis: traumatic acute bleed of right temporal horn - lateral ventricle Presentation: 02/07 13:46 Chief complaint: Patient states: he fell at the grocery store when carrying briskets, ap3 hitting the right side of his head. Coronavirus screen: At this time, the client does not indicate any symptoms associated with coronavirus-19. Ebola Screen: No symptoms or risks identified at this time. Initial Sepsis Screen: Does the patient meet any 2 criteria? No. Patient's initial sepsis screen is negative. Does the patient have a suspected source of infection? No. Patient's initial sepsis screen is negative. Risk Assessment: Do you want to hurt yourself or someone else? Patient reports no desire to harm self or others. Onset of symptoms was February 07, 2023. 13:46 Method Of Arrival: EMS: [facility] ap3 13:46 Acuity: [place]IN[place] 3 ap3 13:50 Care prior to arrival: pressure dressing applied to head for head wound located on the ap3 right side of the patients head. Triage Assessment: 13:49 General: Appears in no apparent distress. Behavior is calm, cooperative, appropriate ap3 for age. Pain: Complains of pain in right moravian Pain currently is 1 out of 10 on a pain scale. Pain began suddenly. Neuro: Level of Consciousness is awake, alert, obeys commands, Oriented to person, place, time, situation. Cardiovascular: Patient's skin is warm and dry. Respiratory: Airway is patent Respiratory effort is even, unlabored, Respiratory pattern is regular, symmetrical. Historical: - Allergies: 13:47 No Known Allergies; ap3 - Home Meds: 13:47 Hydrochlorothiazide Oral [Active]; potassium citrate monohydrate (bulk) miscellaneous ap3 [Active]; Synthroid Oral [Active]; - PMHx: 13:47 annuerysm; Hypertension; Gastroesophageal reflux disease; Kidney stone; Hypothyroidism; ap3 - PSHx: 13:47 right rotator cuff sx; ap3 - Immunization history:: Client reports receiving the 2nd dose of the Covid vaccine. - Social history:: Smoking status: Patient denies any tobacco usage or history of. Screenin:50 [facility] ED Fall Risk Assessment (Adult) History of falling in the last 3 months, ap3 including since admission Yes- single mechanical fall (1 pt) Confusion or Disorientation No (0 pts) Intoxicated or Sedated No (0 pts) Impaired Gait No (0 pts) Mobility Assist Device Used No (0 pt) Altered Elimination No (0 pt) Score/Fall Risk Level 0 - 2 = Low Risk. Abuse screen: Denies threats or abuse. Nutritional screening: No deficits noted. Tuberculosis screening: No symptoms or risk factors identified. Assessment: 15:16 Reassessment: report given to VERONICA Dyer. ap3 15:16 Reassessment: Patient and/or family updated on plan of care and expected duration. Pain ap3 level reassessed. Patient is alert, oriented x 3, equal unlabored respirations, skin warm/dry/pink. General: Appears in no apparent distress. Behavior is calm, cooperative. Neuro: Level of Consciousness is awake, alert, obeys commands, Oriented to person, place, time, situation. 15:48 General: report given to EMS. ap3 Vital Signs: 13:46 BP 151 / 93; Pulse 60; Resp 18; Temp 98.4; Pulse Ox 100% on R/A; Weight 90.72 kg; ap3 Height 5 ft. 11 in. ; Pain 1/10; 15:21 BP 147 / 83; Pulse 71; Resp 17; Pulse Ox 100% on R/A; ap3 13:46 Body Mass Index 27.89 (90.72 kg, 180.34 cm) ap3 13:46 Pain Scale: Adult ap3 ED Course: 13:45 Patient arrived in ED. sb4 13:45 [facility] sb4 13:45 Abhinav Maza MD is Attending Physician. sb4 13:46 Michelle Castellanos, VERONICA is Primary Nurse. ap3 13:47 Triage completed. ap3 13:51 Arm band placed on right wrist. ap3 13:51 Patient has correct armband on for positive identification. Bed in low position. Call ap3 light in reach. Side rails up X2. Pulse ox on. NIBP on. Door closed. Noise minimized. Warm blanket given. 13:58 Head Brain Wo Cont CT In Process Unspecified. EDMS 14:24 attempted to initiate a transfer with the [facility]/ placed on eb automatic hold. 14:33 XRAY Chest (1 view) In Process Unspecified. EDMS 14:42 initiated a transfer with Belle Fregoso Rn from the [facility]. eb 14:47 connected the neurosurgeon and emergency room trauma team with Karis Rodriguez for patient eb transfer consultation. 14:50 administrative approval given by Belle Fregoso Rn/ patient has been accepted to [facility] ER/ Dr. Sarah Howe has accepted the patient in transfer/ report to be called to [phone]. 15:17 Assist provider with laceration repair on right moravian using sutures. Set up tray. ap3 Performed by Karis Francis PA-C Patient tolerated well. 16:01 Patient transferred, IV remains in place. ap3 Administered Medications: 14:45 Drug: Keppra IV 1000 mg Route: IV; Rate: calculated rate; Site: right antecubital; hb 15:17 Follow up: IV Status: Completed infusion ap3 Medication: 15:17 VIS not applicable for this client. ap3 Outcome: 14:28 ER care complete, transfer ordered by . sb4 16:00 Transferred by ground EMS to [facility]. ap3 16:00 Condition: good 16:00 Discharge instructions given to patient, Instructed on the need for transfer, Demonstrated understanding of instructions. 16:01 Patient left the ED. ap3 Signatures: Dispatcher [employer] EDMS Galina Mcfarland RN RN Michelle Castellanos RN RN ap3 Deidre Saucedo Sophia, PA-C PA-C sb4
[2023-02-07 14:48] LABS: Absolute Lymphocytes (CBC) 0.9 K/uL (0.7-4.9); Hematocrit 39.9 % (39.6-49.0); Lymphocytes % 19.1 % (15.3-44.8); MCV 89.3 fL (80-100); MPV 8.5 fL (7.6-11.3); RBC Red Blood Cell Count 4.47 M/uL (4.33-5.43)
[2023-02-07] MEDS ORDERED: NA CHLORIDE 0.9% 100 ML ONE (14:49)
[2023-02-07] MEDS ORDERED: LEVETIRACETAM 500 MG/5 ML VIAL IV ONE (14:49)
--- NOTE | 2023-02-07 14:52 | RAD REPORT ---
EXAM DESCRIPTION: Yemi Single View02/07/2023 2:32 pm CLINICAL HISTORY: Chest pain COMPARISON: none FINDINGS: The lungs appear clear of acute infiltrate. The heart is normal size IMPRESSION: No acute abnormalities displayed
[2023-02-07 15:06] LABS: Potassium 4.1 mEq/L (3.5-5.1)
[2023-02-07 16:27] VITALS: TEMP 98.4; O2SAT 100
[2023-02-07 16:29] VITALS: BP 147/83
--- NOTE | 2023-02-09 17:16 | EKG ---
Test Date: 2023-02-07 Test Time: 14:24:22 Hand Edge Bander: ALP MEASUREMENT RESULTS: Intervals: Rate: 70 [place]: 176 QRSD: 94 QT: 396 QTc: 427 [place]: P: 51 [place]: 176 QRS: -7 T: 19 INTERPRETIVE STATEMENTS: Normal sinus rhythm Minimal voltage criteria for LVH, may be normal variant Borderline ECG Compared to ECG 12/04/2019 18:44:44 No significant changes Electronically Signed On 02-09-23 17:13:15 CDT by Jerry Moctezuma
== END 2023-02-07 16:01 | disposition short-term general hospital (02) ==
LOC: ER 13:44
DX: S06.2X0A Diffuse traumatic brain injury without loss of consciousness, initial encounter (principal); W18.30XA Fall on same level, unspecified, initial encounter; Y93.89 Activity, other specified; Y92.512 Supermarket, store or market as the place of occurrence of the external cause
CPT/HCPCS: 96365; 93005; 85025; 80048; 36415; 86900; 86850; 86901; 84484; 70450; 71045; 99285; J1953